=== PATIENT | female | born 1995 | race Caucasian/White ===

== ENCOUNTER 2023-02-10 10:54 | Outpatient (OUT) | payer BC, SELFPAY | END 2023-02-10 10:55 | disposition home or self-care (01) | LOC: PST 10:54 | PROVIDERS: Visit Provider Obstetrics & Gynecology | DX: Z01.818 Encounter for other preprocedural examination (principal); Z30.2 Encounter for sterilization ==

== ENCOUNTER 2023-02-13 10:30 | Day surgery (SDC) | payer BC, SELFPAY ==
[2023-02-10 11:11] VITALS: BP 137/81; PULSE 80; RESP 18; TEMP 36.4; O2SAT 98; BMI 47.1
[2023-02-13] VITALS (12 sets, daily range): BP systolic 97–123; BP diastolic 50–84; PULSE 85–107; RESP 12–22; TEMP 36.1; O2SAT 93–100; BMI 47.1
[2023-02-13 10:41] LABS: Basophils Absolute Auto 0.1 10^3/uL (0.0-0.1); Basophils Percent Auto 0.7 % (0.2-2.0); Eosinophils Absolute Auto 0.2 10^3/uL (0.0-0.7); Eosinophils Percent Auto 1.7 % (0.9-7.0); Hematocrit 39.8 % (36.0-48.0); Hemoglobin 12.3 g/dL (12.0-16.0); Immature Granulocytes Abs Auto 0.03 10^3/uL (0.00-0.03); Immature Granulocytes Pct Auto 0.3 % (0.0-0.5); Lymphocytes Absolute Auto 2.2 10^3/uL (1.2-3.8); Lymphocytes Percent Auto 24.5 % (20.5-60.0); Mean Corpuscular HGB Conc 30.9 g/dL (29.9-35.2); Mean Corpuscular Hemoglobin 24.8 pg (26.7-34.0); Mean Corpuscular Volume 80.2 fL (81.0-99.0); Mean Platelet Volume 10.6 fL (9.5-13.5); Monocytes Absolute Auto 0.6 10^3/uL (0.3-0.8); Monocytes Percent Auto 7.1 % (1.7-12.0); Neutrophils Absolute Auto 5.8 10^3/uL (1.4-6.5); Neutrophils Percent Auto 65.7 % (43.0-75.0); Platelet Count 364 10^3/uL (150-450); Red Blood Count 4.96 10^6/uL (4.20-5.40); Red Cell Distribution Width 16.6 % (11.0-15.0); White Blood Count 8.8 10^3/uL (4.0-11.0)
[2023-02-13] MEDS: LACTATED RINGER'S SOLUTION 1,000 ML 50 ML IV (10:57)
[2023-02-13 11:07] LABS: HCG Quantitative <1 mIU/mL
--- NOTE | 2023-02-13 13:27 | PM.ONB ---
Brief Operative Note Date of procedure: 02/13/23 Pre-op diagnosis: desires permanent sterilization Post-op diagnosis: same Procedure: robotic assisted laparoscopic bilateral salpingectomy. PROCEDURE: The patient was taken back to the Operating Room where she was given general anesthesia without difficulty. She was then prepped and draped in the normal sterile fashion after being placed in a dorsal lithotomy position. A wet sponge stick was placed into the patient's vagina. Attention was then turned to the patient's abdomen, where a scalpel was used to make a small infraumbilical incision. The S retractors were then used to dissect the underlying layers until the fascia could be seen. The fascia was then grasped with Whitney clamps and tented up. A knife was then used to make a small incision to the fascia. The muscle was identified, at that time two sutures of #0 Vicryl on a GI needle was then used and placed through the fascia. Theperitoneum was then identified and entered bluntly. The 10-4 Pancho was then placed into the patient's abdomen. This was confirmed with direct visualization of the bowel, using the laparoscope. The patient's abdomen was then insufflated using approximately 4 liters of CO2 gas. Survey of the patient's abdomen demonstrated ovaries were normal in appearance as well as both tubes and uterus. A second and third rt and lt lateral robotics ports which were 8 mm in size, was then placed after the skin incision was made under direct visualization The robotic arms were engaged. The patient's tube on the patient's right side was identified and tented up using a grasper, the vessel sealer apparatus was then used to come across the mesosalpingx from the fimbriated end to the insertion site at the uterus, the tube was then amputated and removed in its entirety. This was done on the contralateral side. The tubes were the removed from the patients abdomen. Excellent hemostasis was noted. The lateral ports were then moved under direct visualization with excellent hemostasis. All instruments were removed from the patient's abdomen. The fascia was closed using the #0 Vicryl on GI needle. The skin was closed using 4-0 Vicryl subcuticularly. All instruments were removed from the patient's vagina as well. The patient was taken out of the dorsal lithotomy position and placed in the supine position and taken to recovery in stable condition. Sponge, lap and needle counts were correct x2. Anesthesia: LEW Surgeon: Don Longo Film Editor Supervisor: Flores Solis Estimated blood loss (mL): 10 Pathology: other (bilateral tubes) Condition: stable Disposition: PACU
--- NOTE | 2023-02-13 14:00 | PC.NURSE ---
Dressings x3 to abdomen dry and intact; peripad dry
[2023-02-13] MEDS: MEPERIDINE HCL/PF 25 MG/ML VIAL IVP (14:02)
--- NOTE | 2023-02-13 14:09 | PC.NURSE ---
Dressings to abdomen dry and intact; peripad dry
--- NOTE | 2023-02-13 14:11 | PM.ONB ---
Brief Operative Note Date of procedure: 02/13/23 Pre-op diagnosis: desires permanent sterilization, multiparity Post-op diagnosis: same Procedure: NAME OF PROCEDURE: [robotic assisted bilateral laparoscopic salpingectomy, removal of copper iud ] PROCEDURE: The patient was taken back to the Operating Room where she was given general anesthesia without difficulty. She was then prepped and draped in the normal sterile fashion after being placed in a dorsal lithotomy position. A wet sponge stick was placed into the patient's vagina. Attention was then turned to the patient's abdomen, where a scalpel was used to make a small infraumbilical incision. The S retractors were then used to dissect the underlying layers until the fascia could be seen. The fascia was then grasped with Whitney clamps and tented up. A knife was then used to make a small incision to the fascia. The muscle was identified, at that time two sutures of #0 Vicryl on a GI needle was then used and placed through the fascia. the peritoneum was then identified and entered bluntly. The 10-4 Pancho was then placed into the patient's abdomen. This was confirmed with direct visualization of the bowel, using the laparoscope. The patient's abdomen was then insufflated using approximately 4 liters of CO2 gas. Survey of the patient's abdomen demonstrated ovaries were normal in appearance as well as both tubes and uterus. A second and third rt and lt lateral robotics ports which were 8 mm in size, was then placed after the skin incision was made under direct visualization The robotic arms were engaged. The patient's tube on the patient's right side was identified and tented up using a grasper, the vessel sealer apparatus was then used to come across the mesosalpingx from the fimbriated end to the insertion site at the uterus, the tube was then amputated and removed in its entirety. This was done on the contralateral side. The tubes were the removed from the patients abdomen. Excellent hemostasis was noted. The lateral ports were then moved under direct visualization with excellent hemostasis. All instruments were removed from the patient's abdomen. The fascia was closed using the #0 Vicryl on GI needle. The skin was closed using 4-0 Vicryl subcuticularly. All instruments were removed from the patient's vagina as well. The patient was taken out of the dorsal lithotomy position and placed in the supine position and taken to recovery in stable condition. Sponge, lap and needle counts were correct x2. please note prior to procedure copper iud was removed using ring forceps Anesthesia: LEW Surgeon: Don Longo Strap Buckler Machine: Flores Solis Estimated blood loss (mL): 5 Pathology: other (bilateral tubes) Condition: stable Disposition: PACU
--- NOTE | 2023-02-13 14:18 | PC.NURSE ---
Peripad dry; dressings x3 dry and intact to abdomen
--- NOTE | 2023-02-13 14:27 | PC.NURSE ---
Peripad dry and dressings x3 to abdomen dry
[2023-02-13] MEDS: LACTATED RINGER'S SOLUTION 1,000 ML 150 ML IV (14:33)
--- NOTE | 2023-02-13 14:47 | PC.NURSE ---
Peripad dry; dressings x3 dry and intact to abdomen; c/o nausea which subsided after alcohol pad held under nose; food and drink withheld for now
[2023-02-13] MEDS: HYDROCODONE/ACETAMINOPHEN 5-325 MG TABLET 1 TAB PO (15:09)
--- NOTE | 2023-02-13 15:12 | PC.NURSE ---
dRESSINGS X3 TO ABDOMEN DRY AND INTACT; PERIPAD DRY; NO FURTHER C/O NAUSEA
--- NOTE | 2023-02-13 15:13 | PC.NURSE ---
medicated for pain as ordered and per pt. request
--- NOTE | 2023-02-13 15:45 | PC.NURSE ---
Dressings x3 to abdomen dry and intact; peripad dry; up to bathroom and voided clear yellow urine without difficulty. When standing up after voiding became lightheaded and nauseated; back to cart with w/c
== END 2023-02-13 16:11 | disposition home or self-care (01) ==
PROVIDERS: Visit Provider Obstetrics & Gynecology
PROC: (CPT 58301; principal; 2023-02-13 11:55)
DX: Z30.432 Encounter for removal of intrauterine contraceptive device (principal); Z30.2 Encounter for sterilization; N70.01 Acute salpingitis; N70.11 Chronic salpingitis; N83.8 Other noninflammatory disorders of ovary, fallopian tube and broad ligament; E66.01 Morbid (severe) obesity due to excess calories; Z68.42 Body mass index [BMI] 45.0-49.9, adult; Z79.84 Long term (current) use of oral hypoglycemic drugs; Z79.899 Other long term (current) drug therapy; E28.2 Polycystic ovarian syndrome; F41.9 Anxiety disorder, unspecified
CPT/HCPCS: 58301; 58661; 36415; 84702; 85025; 88304; 88305; J2704

== ENCOUNTER 2023-04-01 21:31 | Outpatient (REF) | payer BC, SELFPAY ==
[2023-04-06 14:08] LABS: Age Gdln ACOG Testing Note (.); IGP, rfx Aptima HPV ASCU Note (.)
== END 2023-04-01 21:32 | disposition home or self-care (01) ==
LOC: LAB 21:31
PROVIDERS: Visit Provider Obstetrics & Gynecology
DX: Z12.4 Encounter for screening for malignant neoplasm of cervix (principal)
CPT/HCPCS: G0145

== ENCOUNTER 2023-08-12 09:29 | Outpatient (OUT) | payer BC, SELFPAY ==
[2023-08-12 09:55] LABS: Estimated Average Glucose 97 mg/dL
[2023-08-12 10:19] LABS: Basophils Percent Auto 0.6 % (0.2-2.0); Eosinophils Absolute Auto 0.1 10^3/uL (0.0-0.7); Eosinophils Percent Auto 2.2 % (0.9-7.0); Hematocrit 40.7 % (36.0-48.0); Hemoglobin 12.9 g/dL (12.0-16.0); Immature Granulocytes Abs Auto 0.01 10^3/uL (0.00-0.03); Immature Granulocytes Pct Auto 0.2 % (0.0-0.5); Lymphocytes Absolute Auto 1.9 10^3/uL (1.2-3.8); Lymphocytes Percent Auto 29.4 % (20.5-60.0); Mean Corpuscular HGB Conc 31.7 g/dL (29.9-35.2); Mean Corpuscular Hemoglobin 26.7 pg (26.7-34.0); Mean Corpuscular Volume 84.1 fL (81.0-99.0); Mean Platelet Volume 11.4 fL (9.5-13.5); Monocytes Absolute Auto 0.6 10^3/uL (0.3-0.8); Monocytes Percent Auto 8.9 % (1.7-12.0); Neutrophils Absolute Auto 3.8 10^3/uL (1.4-6.5); Neutrophils Percent Auto 58.7 % (43.0-75.0); Platelet Count 273 10^3/uL (150-450); Red Blood Count 4.84 10^6/uL (4.20-5.40); Red Cell Distribution Width 15.5 % (11.0-15.0); White Blood Count 6.5 10^3/uL (4.0-11.0)
[2023-08-12 13:44] LABS: Alanine Aminotransferase 32 U/L (14-59); Albumin Globulin Ratio 0.9; Albumin Level 3.8 g/dL (3.4-5.0); Alkaline Phosphatase 70 U/L (46-116); Amylase 51 U/L (25-115); Anion Gap 18.7; Aspartate Amino Transferase 17 U/L (15-37); BUN Creatinine Ratio 15.9; Bilirubin Total 0.5 mg/dL (0.2-1.0); Calcium 9.2 mg/dL (8.5-10.1); Carbon Dioxide 23.6 mmol/L (21.0-32.0); Chloride 104 mmol/L (98-107); Chol HDL Ratio 4.3; Cholesterol 229 mg/dL (<=200); Estimated GFR (African America >60 (>=60); Estimated GFR (Non-African Ame >60 (>=60); Globulin 4.2 g/dL; Glucose 81 mg/dL (74-106); HDL Cholesterol 53 mg/dL (40-60); Potassium 4.3 mmol/L (3.5-5.1); Sodium 142 mmol/L (136-145); Thyroid Stimulating Hormone 0.939 uIU/mL (0.358-3.740); Triglycerides 86 mg/dL (<=150); VLDL CHOLESTEROL 17.2 mg/dL
== END 2023-08-12 09:30 | disposition home or self-care (01) ==
LOC: LAB 09:30
PROVIDERS: Visit Provider Physician Assistant
DX: Z00.01 Encounter for general adult medical examination with abnormal findings (principal)
CPT/HCPCS: 36415; 80053; 80061; 82150; 83036; 83690; 84443; 85025

== ENCOUNTER 2024-04-06 19:34 | Outpatient (REF) | payer BC, SELFPAY ==
--- OUTSIDE RECORDS SUMMARY | 2024-04-06 19:38 | XMS_ITS | CCD ---
Author Organization [facility] Care Team Providers Care Wallcovering Hanger Name Role Phone Required, No Pcp Unavailable Unavailable Jade Rehman Unavailable GUNJAN, DR MATTHEW Admitting Unavailable GUNJAN, DR MATTHEW Attending Unavailable GUNJAN, DR MATTHEW Primary Care Unavailable GUNJAN, DR MATTHEW Consulting Unavailable GUNJAN, DR MATTHEW Admitting Unavailable GUNJAN, DR MATTHEW Attending Unavailable GUNJAN, DR MATTHEW Primary Care Unavailable GUNJAN, DR MATTHEW Consulting Unavailable KOURTNEY NANCE Attending Unavailable TIFF HOLLINS Primary Care Unavailable SHIMA PENDLETON Attending Unavailable SHIMA PENDLETON Attending Unavailable Valentin GALLEGOS Attending Unavailable Medications Current Medications Medication Drug Class(es) Dates Sig (Normalized) Sig (Original) amoxicillin 875 mg / clavulanate 125 mg oral tablet (1 source) Penicillin-class Antibacterial Start: 10-23-2021 End: 11-01-2021 take 1 tablet by mouth twice daily at mealtime amoxicillin-clavula odilia 875 mg-125 mg oral tablet ; 1 tab(s) orally 2 times a day x 10 days Quantity: 20 Refills: 0 Ordered: 23-Oct-2021 Jade Rehman Start: 23-Oct-2021 End: 01-Nov-2021 Generic Substitution Allowed Comments: Finish all this medication unless otherwise directed by prescriber.Take with food or milk. Comment on above: Finish all this medi cation unless otherwise directed by prescriber.Take with food or milk. 24 hr buPROPion hydrochloride 150 mg extended release oral tablet (1 source) Aminoketone take 1 tablet by mouth every twenty-four hours Wellbutrin XL 150 mg/24 hours oral tablet, extended release ; 1 tab(s) orally every 24 hours Quantity: 0 Refills: 0 Ordered: 23-Oct-2021 Fernando Proctor Generic Substitution Allowed metFORMIN hydrochloride 500 mg oral tablet (1 source) Biguanide take 1 tablet by mouth twice daily metFORMIN 500 mg oral tablet ; 1 tab(s) orally 2 times a day Quantity: 0 Refills: 0 Ordered: 23-Oct-2021 Fernando Proctor Generic Substitution Allowed spironolactone 50 mg oral tablet (1 source) Aldosterone Antagonist take 1 tablet by mouth once daily spironolactone 50 mg oral tablet ; 1 tab(s) orally once a day Quantity: 0 Refills: 0 Ordered: 23-Oct-2021 Fernando Proctor Generic Substitution Allowed Problems Problem Classification Problem Date Documented Date Episodic/Chronic Fracture of lower limb (2 sources) Unspecified fracture of left toe(s), initial encounter for closed fracture; Translations: [Unspecified fracture of left toe(s), initial encounter for closed fracture] Onset: 10-22-2022 Episodic Immunizations and screening for infectious disease (1 source) Encounter for screening for human papillomavirus (HPV); Translations: [ENC SCREENING HUMAN PAPILLOMAVIRUS] Onset: 03-26-2022 Episodic Other endocrine disorders (4 sources) Polycystic ovarian syndrome; Translations: [POLYCYSTIC OVARIAN SYNDROME] Onset: 05-01-2022 Chronic Other screening for suspected conditions (not mental disorders or infectious disease) (4 sources) Encounter for screening for malignant neoplasm of cervix; Translations: [ENC SCREENING MALIG NEOPLASM CERV] Onset: 03-25-2022 Episodic Otitis media and related conditions (1 source) Acute otitis media; Translations: [Unspecified otitis media] 10-23-2021 Episodic Unclassified (2 sources) EAR PAIN 10-23-2021 Comment on above: EAR PAIN Unclassified (1 source) AOM (acute otitis media) 10-23-2021 Results Test Name Value Interpretation Reference Range Facility XR FOOT LEFT 3+ VIEWS (STAND SHELBY)on 10-22-2022 XR FOOT LEFT 3+ VIEWS (STANDARD) EXAMINATION: XR FOOT LEFT 3+ VIEWS (STANDARD) HISTORY: F, 27 y/o , left 4th toe pain and swelling COMPARISON: None TECHNIQUE: Three views of the left foot are performed. FINDINGS: There is a subtle lucency within the proximal 4th phalanx, suggesting a nondisplaced fracture.The remaining bony structures are unremarkable. IMPRESSION: Suspected nondisplaced oblique fracture of the proximal 4th phalanx. Workstation ID: [id number] Dictated by: YAMILKA FINLEY on ThuOct 22, 2022 10:00:45 PM EDT Transcribed by: YAMILKA FINLEY on ThuOct 22, 2022 10:00:45 PM EDT Finalized by: YAMILKA FINLEY on ThuOct 22, 2022 10:00:45 PM EDT [facility] Comment on above: Order Comment: Injur y/Trauma or Illness?:Injury/Trauma How long have you had these symptoms (acute/chronic)?:Acute Reason for exam?:hit left foot on couch yesterday, pain and bruising to lt 4th toe History of cancer?:no Surgeries, chemotherapy, or radiation?:no Type of Exam?:Initial Mechanism of injury?:hit left foot on couch DHEA SERUMon 05-05-2022 Dehydroepiandrosterone (DHEA) 454 ng/dL Normal 31-701 [facility] Comment on above: Result Comment: Age 1 - 5 years 0 - 67 6 - 7 years 0 - 110 8 - 10 years 0 - 185 11 - 12 years 0 - 201 13 - 14 years 0 - 318 15 - 16 years 39 - 481 17 - 19 years 40 - 491 >19 years 31 - 701 Performed By: #### D MELBAA. #### [facility] [address] [address] [address] Mariama Matamoros DHEA-SULFATEon 05-02-2022 DHEA-Sulfate 316.0 ug/dL Normal 84.8-378.0 [facility] Comment on above: Performed By: #### D MEETUL #### [facility] [address] [address] [address] Mariama Matamoros FSHon 05-02-2022 FSH 3.9 mIU/mL Normal [facility] Comment on above: Result Comment: Adul t Female: Follicular phase 3.5 - 12.5 Ovulation phase 4.7 - 21.5 Luteal phase 1.7 - 7.7 Postmenopausal 25.8 - 134.8 Performed By: #### L [facility] #### [facility] [address] [address] [address] Mariama Matamoros LUTEINIZING HORMONE (LH)on LH 5.6 mIU/mL Normal [facility] Comment on above: Result Comment: Adul t Female: Follicular phase 2.4 - 12.6 Ovulation phase 14.0 - 95.6 Luteal phase 1.0 - 11.4 Postmenopausal 7.7 - 58.5 Performed By: #### L BCL #### [facility] [address] [place] [address] Dr. Mariama Matamoros CBC AUTO DIFFon 05-01-2022 BASO # 0.1 103/ul Normal 0.0-0.1 [facility] Comment on above: Performed By: #### C BC #### [facility] [address] [place] [address] Dr. Mariama Matamoros Basophils/100 WBC (Bld) 0.7 % Normal 0.2-2.0 [facility] Comment on above: Performed By: #### C BC #### [facility] [address] [place] [address] Dr. Mariama Matamoros EO # 0.2 103/ul Normal 0.0-0.7 [facility] Comment on above: Performed By: #### C BC #### [facility] [address] [place] [address] Dr. Mariama Matamoros Eosinophils/100 WBC (Bld) 2.3 % Normal 0.9-7.0 [facility] Comment on above: Performed By: #### C BC #### [facility] [address] [place] [address] Dr. Mariama Matamoros Erythrocyte distribution width (RBC) [Ratio] 16.0 % Critically high 11.0-15.0 [facility] Comment on above: Performed By: #### C BC #### [facility] [address] [place] [address] Dr. Mariama Matamoros Hematocrit (Bld) [Volume fraction] 41.8 % Normal 36.0-48.0 [facility] Comment on above: Performed By: #### C BC #### [facility] [address] [place] [address] Dr. Mariama Matamoros Hemoglobin (Bld) [Mass/Vol] 13.0 g/dL Normal 12.0-16.0 [facility] Comment on above: Performed By: #### C BC #### [facility] [address] [address] [address] Mariama Matamoros IG # 0.04 10e3/ul Critically high 0.00-0.03 [facility] Comment on above: Performed By: #### C BC #### [facility] [address] [address] [address] Mariama Matamoros IG % 0.4 % Normal 0.0-0.5 [facility] Comment on above: Performed By: #### C BC #### [facility] [address] [place] [address] Dr. Mariama Matamoros LYMPH # 2.7 103/ul Normal 1.2-3.8 [facility] Comment on above: Performed By: #### C BC #### [facility] [address] [place] [address] Dr. Mariama Matamoros Lymphocytes/100 WBC (Bld) 28.2 % Normal 20.5-60.0 [facility] Comment on above: Performed By: #### C BC #### [facility] [address] [place] [address] Dr. Mariama Matamoros MANUAL DIFF REQ NO Normal [facility] Comment on above: Performed By: #### C BC #### [facility] [address] [place] [address] Dr. Mariama Matamoros MCH (RBC) [Entitic mass] 25.2 pg Critically low 26.7-34 .0 [facility] Comment on above: Performed By: #### C BC #### [facility] [address] [place] [address] Dr. Mariama Matamoros MCHC (RBC) [Mass/Vol] 31.1 g/dL Normal 29.9-35.2 [facility] Comment on above: Performed By: #### C BC #### [facility] [address] [place] [address] Dr. Mariama Matamoros MCV (RBC) [Entitic vol] 81.0 fL Normal 81.0-99.0 [facility] Comment on above: Performed By: #### C BC #### [facility] [address] [place] [address] Dr. Mariama Matamoros MONO # 0.6 103/ul Normal 0.3-0.8 [facility] Comment on above: Performed By: #### C BC #### [facility] [address] [place] [address] Dr. Mariama Matamoros Monocytes/100 WBC (Bld) 6.3 % Normal 1.7-12.0 [facility] Comment on above: Performed By: #### C BC #### [facility] [address] [place] [address] Dr. Mariama Matamoros NEUT # 5.9 103/ul Normal 1.4-6.5 [facility] Comment on above: Performed By: #### C BC #### [facility] [address] [place] [address] Dr. Mariama Matamoros Neutrophils/100 WBC (Bld) 62.1 % Normal 43.0-75.0 [facility] Comment on above: Performed By: #### C BC #### [facility] [address] [place] [address] Dr. Mariama Matamoros Platelet mean volume (Bld) [Entitic vol] 11.1 fL Normal 9.5-13.5 [facility] Comment on above: Performed By: #### C BC #### [facility] [address] [place] [address] Dr. Mariama Matamoros PLT 287 103/ul Normal 150-450 [facility] Comment on above: Performed By: #### C BC #### [facility] [address] [place] [address] Dr. Mariama Matamoros RBC 5.16 106/ul Normal 4.20-5.40 [facility] Comment on above: Performed By: #### C BC #### [facility] [address] [place] [address] Dr. Mariama Matamoros WBC 9.5 103/ul Normal 4.0-11.0 [facility] Comment on above: Performed By: #### C BC #### [facility] [address] [place] [address] Dr. Mariama Matamoros FREE T4on 05-01-2022 Free T4 [Mass/Vol] 1.02 ng/dL Normal 0.76-1.46 [facility] Comment on above: Performed By: #### F T4 #### [facility] [address] [place] [address] Dr. Mariama Matamoros GLYCOHEMOGLOBIN A1Con 2021 ADA RECOMMENDATION SEE BELOW Normal [facility] Comment on above: Result Comment: ADA RECOMMENDED LIMIT 4.0 - 6.0 ADA THERAPEUTIC TARGET < 7.0 ACTION SUGGESTED > 7.0 Performed By: #### A 1C #### [facility] [address] [place] [address] Dr. Mariama Matamoros Glucose [Mass/Vol] 111 mg/dL Normal [facility] Comment on above: Performed By: #### A 1C #### [facility] [address] [place] [address] Dr. Mariama Matamoros HbA1c (Bld) [Mass fraction] 5.5 % Normal 4.5-6.2 [facility] Comment on above: Performed By: #### A 1C #### [facility] [address] [place] [address] Dr. Mariama Matamoros TSHon 05-01-2022 TSH 1.559 uIU/mL Normal 0.358-3.740 [facility] Comment on above: Performed By: #### T SH #### [facility] [address] [place] [address] Dr. Mariama Matamoros PAP ACOG PANEL 2: 21 to 29on 04-02-2022 . . Normal [facility] Comment on above: Performed By: #### 4 [id number] #### [facility] [address] [place] [address] Dr. Mariama Matamoros Age Gdln ACOG Testing - [facility] Comment on above: Performed By: #### 4 [id number] #### [facility] [address] [place] [address] Dr. Mariama Matamoros DIAGNOSIS: Comment [facility] Comment on above: Result Comment: NEGA TIVE FOR INTRAEPITHELIAL LESION OR MALIGNANCY. Performed By: #### [id number] #### [facility] [address] [place] [address] Dr. Mariama Matamoros Methodology: Comment Normal [facility] Comment on above: Result Comment: This liquid based ThinPrep(R) pap test was screened with the use of an image guided system. Performed By: #### 4 [id number] #### [facility] [address] [place] [address] Dr. Mariama Matamoros Note: Comment Normal [facility] Comment on above: Result Comment: The Pap smear is a screening test designed to aid in the detection of premalignant and malignant conditions of the uterine cervix. It is not a diagnostic procedure and should not be used as the sole means of detecting cervical cancer. Both false-positive and false-negative reports do occur. . Performed By: #### 4 [id number] #### [facility] [address] [place] [address] Dr. Mariama Matamoros Performed by: Comment Normal [facility] Comment on above: Result Comment: Kamilah Roque Shredder/Granulator Operator (ASCP) Performed By: #### [id number] #### [facility] [address] [place] [address] Dr. Mariama Matamoros Reflex Criteria: Comment Normal [facility] Comment on above: Result Comment: The HPV DNA reflex criteria were not met with this specimen result therefore, no HPV testing was performed. . Performed By: #### 4 [id number] #### [facility] [address] [place] [address] Dr. Mariama Matamoros Specimen adequacy: Comment Normal [facility] Comment on above: Result Comment: Sati sfactory for evaluation. No endocervical component is identified. Performed By: #### 4 [id number] #### [facility] [address] [place] [address] Dr. 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 She states she was treated with Z-Cesar and albuterol inhaler for bronchitis type viral illness about 2 weeks ago at an urgent care in [place]. She denies any cough congestion that is worsening. She states the cough is improving. Denies any chest pain or shortness of breath. No fevers or chills. Denies any ear pain but notes a feeling of underwater and pressure behind the ears worse on the right than the left. Patient denies any dizziness lightheadedness headaches visual changes or slurred speech. Review of Systems All systems negative except as noted in HPI or elsewhere in the chart Constitutional: no fever, chills, weakness, dizziness Eyes: no redness, discharge, vision change, pain ENT: no sore throat, nosebleeds, rhinorrhea, +hearing loss, ear pain, +ear discharge Cardiovascular: no chest pain, leg edema, palpitations Respiratory: no shortness of breath, cough, dyspnea on exertion, pleurisy, hemoptysis GI: no nausea, diarrhea, pain, vomiting, constipation, BRBPR, melena, heartburn : no dysuria, discharge, frequency, flank pain, hematuria, bleeding Musculoskeletal: no myalgia, neck/back pain, redness, arthralgia, inflammation Skin: no rash, bruising, contusions, swelling, lacerations, abrasions Neurological: no headache, numbness, change in function, weakness, AMS, paresthesias, speech change Psychiatric: no AMS, agitation, suicidal, confusion, depression, anxiety Metabolic: no fatigue, polyuria, hair change, dry skin, weakness, polydipsia, temperature intolerance Hematologic: no bleeding, nodes, bruising, petechiae Allergic: no rhinorrhea, sneezing, atopic dermatitis, frequent URIs PMFSH Nursing notes reviewed and confirmed by me. Past Medical History: PCOS , obese, depression Past Surgical History: LMP: G P Tetanus: UTD Family History: no DM, HTN, CAD, CVA, Cancer Social History: no smoking, alcohol use, substance abuse, lives alone, marital status Allergies and Medications: See nurses notes. Physical Exam Constitutional: Vital signs per nursing notes. Well developed, well nourished. No acute distress. Young overweight pleasant female evaluated in urgent care #1 in no distress Psychiatric: alert and oriented to person, place, and time; no abnormalities of mood or affect; memory intact Eyes: PERRL; conjunctivae and lids normal; EOMI ENT: otoscopic exam of external canal and TMs significant purulent air-filled opacity with bulging noted to the right TM, injection and retraction noted to the left TM, no notable externa drainage or evidence of canal narrowing or edema.; nasal mucosa, turbinates, and septum normal; mouth, tongue, and pharynx normal; pharynx without edema, exudate, or injection, moist mucous membranes Neck: neck supple, no meningismus; trachea midline without deviation; no lymphadenopathy; no thyromegaly; carotid pulses even bilaterally Chest: no masses or tenderness, no discharge Respiratory: normal respiratory effort and excursion; no rales, rhonchi, or wheezes; equal air entry Cardiovascular: regular rate and rhythm; no murmurs, rubs or gallops; symmetric pulses; no edema; normal capillary refill; distal pulses present Neurological: normal speech; CN II-XII grossly intact; Musculoskeletal: normal gait and station; normal digits and nails; Skin: normal to inspection; normal to palpation; no rash GCS: 15 HISTORY OF PRESENTING ILLNESS GREGORY is a 26 year old Female and was seen by me at 23-Oct-2021 15:59. Triage Information: Most recent Vital Sign Value Date PAST MEDICAL HISTORY ALLERGIES/INTOLERAN EVY: No Known Allergies HEALTH HISTORY: No documented data. OUTPATIENT MEDICATIONS: Home Medications Review Status for Reconciliation: Complete Med Status: Patient Currently Takes Medications Drug Name: Wellbutrin XL 150 mg/24 hours oral tablet, extended release Instructions: 1 tab(s) orally every 24 hours Drug Name: metFORMIN 500 mg oral tablet Instructions: 1 tab(s) orally 2 times a day Drug Name: spironolactone 50 mg oral tablet Instructions: 1 tab(s) orally once a day SIGNIFICANT EVENTS: Other Description:NON SMOKER Additional Notes:09/2021 Past Medical History Description:PCOS Additional Notes:09/2021 Past Surgical History Description:NO SURGICAL HISTORY THIS YEAR Additional Notes:09/2021 CRITICAL CARE VITAL SIGNS: T PRBP SpO2O2(LPM) %FiO2 Method 23-Oct-2021 15:50:[id number] 97 MDM MDM/ED COURSE: Patient 2 weeks post viral syndrome states she is improving. Lungs are clear bilaterally. Patient well-appearing with normal vital signs. Patient does have significant bulging and purulence with opacification noted to the right TM with retra (more content not included)... Normal [facility] Vital Signs Date Time Vital Sign Value Performing Clinician Facility 10-23-2021 17:50-0400 Body height 167.6 cm No Pcp Required [facility] 10-23-2021 17:50-0400 Body temperature 96.08 [degF] No Pcp Required [facility] 10-23-2021 17:50-0400 Diastolic blood pressure 71 mm[Hg] No Pcp Required [facility] 10-23-2021 17:50-0400 Heart rate 78 /min No Pcp Required [facility] 10-23-2021 17:50-0400 Respiratory rate 16 /min No Pcp Required [facility] 10-23-2021 17:50-0400 SaO2% (BldA) [Mass fraction] 97 % No Pcp Required [facility] 10-23-2021 17:50-0400 Systolic blood pressure 105 mm[Hg] No Pcp Required [facility] Encounters Encounter Date Encounter Type Care Provider Facility Start: 03-21-2024 End: 03-21-2024 ambulatory Valentin ROSY Facility:[facility] Start: 12-15-2023 End: 12-15-2023 ambulatory SHIMA PENDLETON Not Available Start: 08-11-2023 End: 08-11-2023 ambulatory SHIMA PENDLETON Not Available Start: 10-22-2022 End: 10-23-2022 Emergency department patient visit KOURTNEY NANCE [facility] Start: 05-01-2022 End: 05-02-[address] TIFF HOLLINS Facility:[facility] Start: 03-25-2022 End: 03-25-[address] TIFF HOLLINS Facility:[facility] Start: 10-23-2021 End: 10-23-2021 Emergency department patient visit J[facility] Payers Date Payer Category Payer Unknown [id number] 1996 Unknown [id number] 1996 Unknown [id number] 1996 Unknown [id number] 1996 Unknown [id number] 1996 Unknown [id number] 1996 Unknown [id number] 1959 Unknown [id number] Unknown [employer] [place] Self-pay Social History Date Type Detail Facility [facility] Tobacco smoking consumption unknown [facility] Summary Purpose Family History No Family History Records FoundNo Family History Records FoundNo Family History Records FoundNo Family History Records FoundNo Family History Records Found Advance Directives No Advanced Directives Records FoundNo Advanced Directives Records FoundNo Advanced Directives Records FoundNo Advanced Directives Records FoundNo Advanced Directives Records Found Additional Source Comments <item> Privacy Markings (unrecogniz ed section and content) Section Author: Paige Walton PROHIBITION ON REDISCLOSURE OF CONFIDENTIAL INFORMATION This notice accompanies a disclosure of information concerning a client made to you with the consent of such client. INFORMATION SOURCE (unrecogn ized section and content) DATE CREATED AUTHOR 10/25/2021 [facility] DATE CREATED AUTHOR AUTHOR'S ORGANIZ ATION 05/05/2022 [facility] DATE CREATED AUTHOR AUTHOR'S ORGANIZ ATION 10/30/2022 [facility] DATE CREATED AUTHOR AUTHOR'S ORGANIZ ATION 12/17/2023 [facility] EPIC DATE CREATED AUTHOR AUTHOR'S ORGANIZ ATION 03/22/2024 [facility] FOR RECORDS PERTAINING TO PATIENTS WHO ARE OR HAVE BEEN ENROLLED IN A CHEMICAL DEPENDENCY/SUBSTANCEABUSE PROGRAM, SOME INFORMATION MAY BE OMITTED. This clinical summary was aggregated from multiple sources. Caution should be exercised in using it in the provision of clinical care. This summary normalizes information from multiple sources, and as a consequence, information in this document may materially change the coding, format and clinical context of patient data. In addition, data may be omitted in some cases. CLINICAL DECISIONS SHOULD BE BASED ON THE PRIMARY CLINICAL RECORDS. [facility] [employer] [facility]. provides no warranty or guarantee of the accuracy or completeness of information in this document.
== END 2024-04-06 19:35 | disposition home or self-care (01) ==
LOC: LAB 19:34
PROVIDERS: Visit Provider Obstetrics & Gynecology
DX: Z01.419 Encounter for gynecological examination (general) (routine) without abnormal findings (principal)
CPT/HCPCS: 88175

== ENCOUNTER 2024-05-11 10:25 | Outpatient (REF) | payer BC, SELFPAY ==
--- OUTSIDE RECORDS SUMMARY | 2024-05-19 10:32 | XMS_ITS | CCD ---
Author Organization [facility] Care Team Providers Care Pump Installer Name Role Phone Required, No Pcp Unavailable Unavailable Jade Rehman Unavailable QING, DR MATTHEW Admitting Unavailable QING, DR MATTHEW Attending Unavailable QING, DR MATTHEW Primary Care Unavailable QING, DR MATTHEW Consulting Unavailable QING, DR MATTHEW Admitting Unavailable QING, DR MATTHEW Attending Unavailable QING, DR MATTHEW Primary Care Unavailable QING, DR MATTHEW Consulting Unavailable KOURTNEY NANCE Attending Unavailable TIFF LONGO Primary Care Unavailable Valentin GALLEGOS Attending Unavailable Alen Ervin MD Primary Care Provider SHIMA PENDLETON Attending Unavailable SHIMA PENDLETON Attending Unavailable TIFF LONGO Attending Unavailable TIFF LONGO Attending Unavailable Medications Current Medications Medication Drug Class(es) Dates Sig (Normalized) Sig (Original) amoxicillin 875 mg / clavulanate 125 mg oral tablet (1 source) Penicillin-class Antibacterial Start: 10-23-2021 End: 11-01-2021 take 1 tablet by mouth twice daily at mealtime amoxicillin-clavu lanate 875 mg-125 mg oral tablet ; 1 [...] hydrochloride 150 mg extended release oral tablet (2 sources) Aminoketone Start: 04-06-2024 End: 04-06-2025 take 1 tablet by mouth once daily buPROPion XL (Wellbutrin XL) 150 MG 24 hr tablet Indications: Major depressive disorder, remission status unspecified, unspecified whether recurrent (CMS/HCC) Take 1 tablet (150 mg) by mouth Daily Do not crush, chew, or split. 360 tablet 04/06/2024 04/06/2025 Active take 1 tablet by garcia th every twenty-four hours Wellbutrin XL 150 mg/24 hours oral table t, extended release ; 1 tab(s) orally every 24 hours Quantity: 0 Refills: 0 Ordered: 23-Oct-2021 Fernando Proctor Generic Substitution Allowed clindamycin 10 mg/ml topical lotion (1 source) Lincosamide Antibacterial Start: 04-06-2024 End: 04-06-2025 clindamycin (Cleocin-T) 1 % lotion Indications: Acne, unspecified acne type Apply topically 2 (two) times a day 60 mL 04/06/2024 04/06/2025 Active 24 hr metFORMIN hydrochloride 500 mg extended release oral tablet (2 sources) Biguanide Start: 04-06-2024 End: 04-06-2025 take 2 tablets by mouth once daily metFORMIN XR (Glucophage-XR) 500 MG 24 hr tablet Indications: Insulin resistance Take 2 tablets (1,000 mg) by mouth Daily Do not crush, chew, or split. 60 tablet 04/06/2024 04/06/2025 Active take 1 tablet by mouth twice vania ly metFORMIN 500 mg oral tablet ; 1 tab(s) orally 2 times a day Quantity: 0 Refills: 0 Ordered: 23-Oct-2021 Fernando Proctor Generic Substitution Allowed spironolactone 50 mg oral tablet (2 sources) Aldosterone Antagonist Start: 04-06-2024 End: 04-06-2025 take 1 tablet by mouth once daily spironolactone (Aldactone) 50 MG tablet Indications: Blood pressure instability Take 1 tablet (50 mg) by mouth Daily 360 tablet 04/06/2024 04/06/2025 Active take 1 tablet by mouth once maria y spironolactone 50 mg oral tablet ; 1 tab(s) orally once a day Quantity: 0 Refills: 0 Ordered: 23-Oct-2021 Fernando Proctor Generic Substitution Allowed Tirzepatide (Mounjaro) 2.5 MG/0.5ML solution auto-injector (1 source) Start: 05-09-2024 End: 06-08-2024 inject 0.5 mL by subcutaneous injection every week Tirzepatide (Mounjaro) 2.5 MG/0.5ML solution auto-injector Indications: Weight gain INJECT 0.5 ML UNDER THE SKIN 1 (ONE) TIME PER WEEK 0.5 mL 2 05/09/2024 06/08/2024 Active Tirzepatide (Mounjaro) 5 MG/0.5ML solution auto-injector (1 source) Start: 05-11-2024 End: 06-10-2024 inject 0.5 mL by subcutaneous injection every week Tirzepatide (Mounjaro) 5 MG/0.5ML solution auto-injector Indications: Weight gain Inject 0.5 mL under the skin 1 (one) time per week 2 mL 05/11/2024 06/10/2024 Active Completed/Discontinued Medications Medication Drug Class(es) Dates Sig (Normalized) Sig (Original) minocycline 50 mg oral tablet (1 source) Tetracycline-cla ss Drug Start: 04-06-2024 End: 05-11-2024 take 1 tablet by mouth in the morning minocycline (Dynacin) 50 MG tablet Indications: Acne, unspecified acne type Take 1 tablet (50 mg) by mouth in the morning and 1 tablet (50 mg) before bedtime. 60 tablet 1 04/06/2024 05/11/2024 Discontinued 1 mg dose 1.5 ml semaglutide 1.34 mg/ml pen injector (1 source) Start: 01-13-2024 End: 05-11-2024 inject 1 mg by subcutaneous injection every week semaglutide (Ozempic, 1 MG/DOSE,) 2 MG/1.5ML solution pen-injector Indications: Insulin resistance Inject 1 mg under the skin 1 (one) time per week for 28 days 3 mL 01/13/2024 05/11/2024 Discontinued Semaglutide, 2 MG/DOSE, (Ozempic, 2 MG/DOSE,) 8 MG/3ML solution pen-injector (1 source) Start: 02-24-2024 End: 05-11-2024 Semaglutide, 2 MG/DOSE, (Ozempic, 2 MG/DOSE,) 8 MG/3ML solution pen-injector Indications: Insulin resistance Inject 8 mg under the skin 1 (one) time per week for 28 days 3 mL 02/24/2024 05/11/2024 Discontinued Problems Active Problems Problem Classification Problem Date Documented Date Episodic/Chronic Cancer of cervix (1 source) Cervical intraepithelial neoplasia grade 1; Translations: [Low grade squamous intraepithelial lesion on cytologic smear of cervix (LGSIL)] 05-11-2024 Episodic Fracture of lower limb (2 sources) Unspecified [...] [POLYCYSTIC OVARIAN SYNDROME] Onset: 05-01-2022 Chronic Other nutritional; endocrine; and metabolic disorders (1 source) Weight increased; Translations: [Abnormal weight gain] 05-11-2024 Episodic Other screening for suspected conditions (not mental [...] (1 source) AOM (acute otitis media) 10-23-2021 Past or Other Problems Problem Classification Problem Date Documented Da te Episodic/Chronic Administrative/social admission (1 source) Patient encounter status; Translations: [Persons encountering health services in other specified circumstances] Onset: 08-12-2023 08-12-2023 Episodic Results Test Name Value Interpretation Reference Range Facility HCG ( test) Ql (U)o n 05-11-2024 Interpretation and review of laboratory results Normal [facility] Preg Test, Ur Negative [facility] XR FOOT LEFT 3+ VIEWS (STAND SHELBY)on [...] on ThuOct 22, 2022 10:00:[address] [facility] Comment on above: Order Comment: Injur y/Trauma or Illness?:Injury/Trauma How long have you had these symptoms (acute/chronic)?:Acute Reason for exam?:hit left foot on couch yesterday, pain and bruising to lt 4th toe History of cancer?:no Surgeries, chemotherapy, or radiation?:no Type of Exam?:Initial Mechanism of injury?:hit left foot on couch DHEA SERUMon 05-05-2022 Dehydroepiandrosterone (DHEA) 454 ng/dL Normal 31-701 [facility] Comment on above: Result Comment: Age [...] years 31 - 89 Performed By: #### Sergio ONOFRE. #### [facility] [address] [place], [place] [address] Dr. Mariama Matamoros DHEA-SULFATEon 05-02-2022 DHEA-Sulfate 316.0 ug/dL Normal 84.8-378.0 [facility] Comment on above: Performed By: #### Sergio SINCLAIR #### [facility] [address] [place], [place] [address] Dr. Mariama Matamoros FSHon 05-02-2022 FSH 3.9 mIU/mL Normal [facility] Comment on above: Result Comment: Adul t Female: Follicular phase 3.5 - 12.5 Ovulation phase 4.7 - 21.5 Luteal phase 1.7 - 7.7 Postmenopausal 25.8 - 134.8 Performed By: #### L BCFS #### [facility] [address] [place] [address] Dr. Mariama Matamoros LUTEINIZING HORMONE (LH)on LH 5.6 mIU/mL Normal [facility] Comment on above: Result Comment: Adul t Female: Follicular phase 2.4 - 12.6 Ovulation phase 14.0 - 95.6 Luteal phase 1.0 - 11.4 Postmenopausal 7.7 - 58.5 Performed By: #### L BCL #### [facility] [address] [place] [address] Dr. Mariama Matamoros CBC AUTO DIFFon 05-01-2022 BASO # 0.1 103/ul Normal 0.0-0.1 [facility] Comment on above: Performed By: #### C BC #### [facility] [address] [place] [address] Dr. Mariama Matamoros Basophils/100 WBC (Bld) 0.7 % Normal 0.2-2.0 [facility] Comment on above: Performed By: #### C BC #### [facility] [address] [place] [address] Dr. Mariama Matamoros EO # 0.2 103/ul Normal 0.0-0.7 [facility] Comment on above: Performed By: #### C BC #### [facility] [address] [place] [address] Dr. Mariama Matamoros Eosinophils/100 WBC (Bld) 2.3 % Normal 0.9-7.0 [facility] Comment on above: Performed By: #### C BC #### [facility] [address] [place] [address] Dr. Mariama Matamoros Erythrocyte distribution width (RBC) [Ratio] 16.0 % Critically high 11.0-15.0 [facility] Comment on above: Performed By: #### C BC #### [facility] [address] [place] [address] Dr. Mariama Matamoros Hematocrit (Bld) [Volume fraction] 41.8 % Normal 36.0-48.0 [facility] Comment on above: Performed By: #### C BC #### [facility] [address] [place] [address] Dr. Mariama Matamoros Hemoglobin (Bld) [Mass/Vol] 13.0 g/dL Normal 12.0-16.0 [facility] Comment on above: Performed By: #### C BC #### [facility] [address] [place] [address] Dr. Mariama Matamoros IG # 0.04 10e3/ul Critically high 0.00-0.03 [facility] Comment on above: Performed By: #### C BC #### [facility] [address] [place] [address] Dr. Mariama Matamoros IG % 0.4 % Normal 0.0-0.5 [facility] Comment on above: Performed By: #### C BC #### [facility] [address] [place] [address] Dr. Mariama Matamoros LYMPH # 2.7 103/ul Normal 1.2-3.8 [facility] Comment on above: Performed By: #### C BC #### [facility] [address] [place] [address] Dr. Mariama Matamoros Lymphocytes/100 WBC (Bld) 28.2 % Normal 20.5-60.0 [facility] Comment on above: Performed By: #### C BC #### [facility] [address] [place] [address] Dr. Mariama Matamoros MANUAL DIFF REQ NO Normal [facility] Comment on above: Performed By: #### C BC #### [facility] [address] [place] [address] Dr. Mariama Matamoros MCH (RBC) [Entitic mass] 25.2 pg Critically low 26.7-34 .0 [facility] Comment on above: Performed By: #### C BC #### [facility] [address] [place] [address] Dr. Mariama Matamoros MCHC (RBC) [Mass/Vol] 31.1 g/dL Normal 29.9-35.2 [facility] Comment on above: Performed By: #### C BC #### [facility] [address] [place] [address] [address] Mariama Matamoros MCV (RBC) [Entitic vol] 81.0 fL Normal 81.0-99.0 [facility] Comment on above: Performed By: #### C BC #### [facility] [address] [place] [address] [address] Mariama Matamoros MONO # 0.6 103/ul Normal 0.3-0.8 [facility] Comment on above: Performed By: #### C BC #### [facility] [address] [place] [address] [address] Mariama Matamoros Monocytes/100 WBC (Bld) 6.3 % Normal 1.7-12.0 [facility] Comment on above: Performed By: #### C BC #### [facility] [address] [place] [address] Dr. Mariama Matamoros NEUT # 5.9 103/ul Normal 1.4-6.5 [facility] Comment on above: Performed By: #### C BC #### [facility] [address] [place] [address] [address] Mariama Matamoros Neutrophils/100 WBC (Bld) 62.1 % Normal 43.0-75.0 [facility] Comment on above: Performed By: #### C BC #### [facility] [address] [place] [address] [address] Mariama Matamoros Platelet mean volume (Bld) [Entitic vol] 11.1 fL Normal 9.5-13.5 [facility] Comment on above: Performed By: #### C BC #### [facility] [address] [place] [address] [address] Mariama Matamoros PLT 287 103/ul Normal 150-450 [facility] Comment on above: Performed By: #### C BC #### [facility] [address] [place] [address] [address] Mariama Matamoros RBC 5.16 106/ul Normal 4.20-5.40 [facility] Comment on above: Performed By: #### C BC #### [facility] [address] [place] [address] Dr. Mariama Matamoros WBC 9.5 103/ul Normal 4.0-11.0 [facility] Comment on above: Performed By: #### C BC #### [facility] [address] [place] [address] Dr. Mariama Matamoros FREE T4on 05-01-2022 Free T4 [Mass/Vol] 1.02 ng/dL Normal 0.76-1.46 [facility] Comment on above: Performed By: #### F T4 #### [facility] [address] [place] [address] Dr. Mariama Matamoros GLYCOHEMOGLOBIN A1Con 2021 ADA RECOMMENDATION SEE BELOW Normal [facility] Comment on above: Result Comment: ADA RECOMMENDED LIMIT 4.0 - 6.0 ADA THERAPEUTIC TARGET < 7.0 ACTION SUGGESTED > 7.0 Performed By: #### A 1C #### [facility] [address] [place] [address] Dr. Mariama Matamoros Glucose [Mass/Vol] 111 mg/dL Normal [facility] Comment on above: Performed By: #### A 1C #### [facility] [address] [place] [address] Dr. Mariama Matamoros HbA1c (Bld) [Mass fraction] 5.5 % Normal 4.5-6.2 [facility] Comment on above: Performed By: #### A 1C #### [facility] [address] [place] [address] Dr. Mariama Matamoros TSHon 05-01-2022 TSH 1.559 uIU/mL Normal 0.358-3.740 [facility] Comment on above: Performed By: #### T SH #### [facility] [address] [place] [address] Dr. Mariama Matamoros PAP ACOG PANEL 2: 21 to 29on 04-02-2022 . . Normal [facility] Comment on above: Performed By: #### [id number] #### [facility] [address] [place] [address] Dr. Mariama Matamoros Age Gdln ACOG Testing 21-29 Normal [facility] Comment on above: Performed By: #### 4 [id number] #### [facility] [address] [place] [address] Dr. Mariama Matamoros DIAGNOSIS: Comment Normal [facility] Comment on above: Result Comment: NEGA TIVE FOR INTRAEPITHELIAL LESION OR MALIGNANCY. Performed By: #### 4 [id number] #### [facility] [address] [place] [address] Dr. Mariama Matamoros Methodology: Comment Normal [facility] Comment on above: Result Comment: This liquid based ThinPrep(R) pap test was screened with the use of an image guided system. Performed By: #### 4 [id number] #### [facility] [address] [place] [address] Dr. Mariama Matamoros Note: Comment Normal [facility] Comment on above: Result Comment: The Pap smear is a screening test designed to aid in the detection of premalignant and malignant conditions of the uterine cervix. It is not a diagnostic procedure and should not be used as the sole means of detecting cervical cancer. Both false-positive and false-negative reports do occur. . Performed By: #### 4 [id number] #### [facility] [address] [place] [address] Dr. Mariama Matamoros Performed by: Comment Normal [facility] Comment on above: Result Comment: Kamilah Roque Optical Worker (ASCP) Performed By: #### 4 [id number] #### [facility] [address] [place] [address] Dr. Mariama Matamoros Reflex Criteria: Comment Normal [facility] Comment on above: Result Comment: The HPV DNA reflex criteria were not met with this specimen result therefore, no HPV testing was performed. . Performed By: #### 4 [id number] #### [facility] [address] [place] [address] Dr. Mariama Matamoros Specimen adequacy: Comment Normal [facility] Comment on above: Result Comment: Sati sfactory for evaluation. No endocervical component is identified. Performed By: #### 4 [id number] #### [facility] [address] [place] [address] [address] 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 She states she was treated with Z-Cesar and albuterol inhaler for bronchitis type viral illness about 2 weeks ago at an urgent care in [place]. She denies any cough congestion that is [...] no rhinorrhea, sneezing, atopic dermatitis, frequent URIs [facility] Nursing notes reviewed and confirmed by me. [...] rash GCS: 15 HISTORY OF PRESENTING ILLNESS MALINI is a 26 year old Female and [...] SIGNS: T PRBP SpO2O2(LPM) %FiO2 Method 23-Oct-2021 15:50:[id number] MDM MDM/ED COURSE: Patient 2 weeks post viral syndrome states she is improving. Lungs are clear bilaterally. Patient well-appearing with normal vital signs. Patient does have significant bulging and purulence with opacification noted to the right TM with retra (more content not included)... Normal [facility] Vital Signs Date Time Vital Sign Value Performing Clinician Facility 05-11-2024 14:49-0400 Body mass index (BMI) [Ratio] 39.03 kg/m2 [employer] Work Phone: [facility] 05-11-2024 14:49-0400 Body weight 109.68 kg [employer] Work Phone: [facility] 05-11-2024 14:49-0400 Diastolic blood pressure 60 mm[Hg] [employer] Work Phone: [facility] 05-11-2024 14:49-0400 Systolic blood pressure 118 mm[Hg] [employer] Work Phone: [facility] 10-23-2021 17:50-0400 Body height 167.6 cm No Pcp Required [facility] 10-23-2021 17:50-0400 Body temperature 96.08 [degF] No Pcp Required [facility] 10-23-2021 17:50-0400 Diastolic blood pressure 71 mm[Hg] No Pcp Required [facility] 10-23-2021 17:50-0400 Heart rate 78 /min No Pcp Required [facility] 10-23-2021 17:50-0400 Respiratory rate 16 /min No Pcp Required [facility] 10-23-2021 17:50-0400 SaO2% (BldA) [Mass fraction] 97 % No Pcp Required [facility] 10-23-2021 17:50-0400 Systolic blood pressure 105 mm[Hg] No Pcp Required [facility] Encounters Encounter Date Encounter Type Care Provider Facility Start: 05-11-2024 End: 05-11-2024 Patient encounter procedure Tiff Longo DO Work Phone: [facility] Comment on above: LGSIL of cervix of u ndetermined significance; Weight gain Start: 05-11-2024 End: 05-11-2024 ambulatory TIFF LONGO Not Available Start: 04-06-2024 End: 04-06-2024 ambulatory TIFF LONGO Not Available Start: 03-21-2024 End: 03-21-2024 ambulatory Valentin GALLEGOS Facility:[facility] Start: 12-15-2023 End: 12-15-2023 ambulatory SHIMA GREENFIELDEY Not Available Start: 08-11-2023 End: 08-11-2023 ambulatory SHIMA PENDLETON Not Available Start: 10-22-2022 End: 10-23-2022 Emergency department patient visit KOURTNEY PATEL [facility] Start: 05-01-2022 End: 05-02-[address] TIFF LONGO Facility:[facility] Start: 03-25-2022 End: 03-25-[address] TIFF LONGO Facility:[facility] Start: 10-23-2021 End: 10-23-2021 Emergency department patient visit Jade Rehman [facility] Procedures Date Procedure Procedure Detail Performing Clinician Start: 05-11-2024 Urine test visual color cmprsn meths Tiff Longo DO Work Phone: Plan of Treatment Date Care Activity Detail Author Start: 04-13-2025 End: 04-13-2025 Patient encounter procedure 04/13/2025 10:00 AM EDT Office Visit [facility] [address], [place] [address] Tiff Longo DO [address] [place] [address] [facility] Start: 11-15-2024 End: 11-15-2024 Patient encounter procedure 11/15/2024 10:00 AM EDT Procedure Visit [facility] [address], [place] [address] Qing, Tiff, [address] [place] [address] [facility] Start: 05-11-2024 End: 05-11-2025 Colposcopy Colposcopy Procedures Routine LGSIL of cervix of undetermined significance Expected: 05/11/2024 (Approximate), Expires: 05/11/2025 [facility] Work Phone: Comment on above: Expected: 05/11/2024 (Approximate), Expires: 05/11/2025 Start: 03-27-2024 Influenza vaccination Influenza Vacc ine (#1) [facility] Payers Date Payer Category Payer [facility] er [id number] 2022 Unknown [id number] 1996 Unknown [id number] 1996 Unknown [id number] 1996 Unknown [id number] 1996 Unknown [id number] 1996 Unknown [id number] 1996 Unknown [id number] 1996 Unknown [id number] 1996 Unknown [id number] 1959 Unknown [id number] Unknown [employer] [place] Self-pay Social History Date Type Detail Facility [facility] Tobacco smoking consumption unknown [facility] Start: 04-06-2024 Tobacco smoking stat us NHIS Never smoked tobacco [facility] Start: 04-06-2024 Tobacco use and exposure Smokeless tobacco non-user [facility] Start: 05-11-2024 Alcoholic beverage intake Lifetime non-drinker (finding) [facility] Start: 08-11-2023 History of Social function [facility] Start: 08-11-2023 Tobacco use panel [facility] Start: 04-06-2024 Tobacco Comment None [facility] Start: 12-26-2022 Alcohol Comment caffeine intake: yes [facility] Start: 1995 Sex assigned at Not on file [facility] History of Present illness Narrative 05-11-2024 Adrianasheri Landeros LPN - 05/11/2024 2:30 PM EDT Note Date & Type Note Facility 05-11-2024 History of Presen t illness Narrative Reason for Appointment: Patient ID: Malini Yadav is a 29 y.o. female who presents for Colposcopy Patient presents today for Repeat Pap. and Consult appointment. MEDICATIONS Current Outpatient Medications Medication Instructions buPROPion XL (WELLBUTRIN XL) 150 mg, Oral, Daily, Do not crush, chew, or split. clindamycin (Cleocin-T) 1 % lotion Topical, 2 times daily metFORMIN XR (GLUCOPHAGE-XR) 1,000 mg, Oral, Daily, Do not crush, chew, or split. spironolactone (ALDACTONE) 50 mg, Oral, Daily Tirzepatide (Mounjaro) 2.5 MG/0.5ML solution auto-injector 0.5 mL, Subcutaneous, Weekly ALLERGIES No Known Allergies PROBLEMS Active Ambulatory Problems Diagnosis Date Noted Encounter for weight management 08/12/2023 Resolved Ambulatory Problems Diagnosis Date Noted No Resolved Ambulatory Problems Past Medical History: Diagnosis Date Acne Anxiety Chronic fatigue Dysmenorrhea Hair loss Hirsutism LGSIL on Pap smear of cervix Menorrhagia PCOS (polycystic ovarian syndrome) Weight gain HISTORY PAST MEDICAL HISTORY SOCIAL HISTORY Past Medical History: Diagnosis Date Acne Anxiety Chronic fatigue Dysmenorrhea Hair loss Hirsutism LGSIL on Pap smear of cervix Menorrhagia PCOS (polycystic ovarian syndrome) Weight gain Social History Tobacco Use Smoking status: Never Smokeless tobacco: Never Tobacco comments: None Substance Use Topics Alcohol use: Never Comment: caffeine intake: yes Drug use: Never FAMILY HISTORY Family History Problem Relation Name Age of Onset Migraines Mother Tamanna Hypertension Brother No Known Problems Daughter Tara No Known Problems Son Andrew SURGICAL HISTORY Past Surgical History: Procedure Laterality Date SECTION, LOW TRANSVERSE 10/27/2015 SECTION, LOW TRANSVERSE 07/24/2020 TUBAL LIGATION 02/13/23 REVIEW OF SYSTEMS Review of Systems: Review of Systems Constitutional: Negative. HENT: Negative. Eyes: Negative. Respiratory: Negative. Cardiovascular: Negative. Gastrointestinal: Negative. Genitourinary: Negative. Musculoskeletal: Negative. Skin: Negative. Neurological: Negative. All other systems reviewed and are negative. Hematological: Negative. Endocrine: Negative. Allergic/Immunologic: Negative. OBJECTIVE Objective: Physical Exam Constitutional: Appearance: Normal appearance. She is well-developed. Genitourinary: Vulva normal. Cardiovascular: Rate and Rhythm: Normal rate and regular rhythm. Pulmonary: Effort: Pulmonary effort is normal. Breath sounds: Normal breath sounds. Abdominal: General: Bowel sounds are normal. There is no distension. Palpations: Abdomen is soft. Tenderness: There is no abdominal tenderness. There is no guarding or rebound. Musculoskeletal: General: No swelling. Normal range of motion. Right lower leg: No edema. Left lower leg: No edema. Neurological: Mental Status: She is alert and oriented to person, place, and time. Skin: General: Skin is warm and dry. Psychiatric: Mood and Affect: Mood normal. Behavior: Behavior normal. Vitals and nursing note reviewed. Exam conducted with a supervisor spring up present. Vitals: Estimated body mass index is 39.03 kg/m as calculated from the following: Height as of 04/06/24: 5' 6 . Weight as of this encounter: 241 lb 12.8 oz. BP: 118/60 Patient's last menstrual period was 05/04/2024. ASSESSMENT & PLAN ICD-10-CM 1. LGSIL of cervix of undetermined significance R87.612 POCT , urine manually resulted Colposcopy Colposcopy: Patient is doing well and has no complaints. Pap results have been reviewed with the patient in great detail and patient voiced understanding. Patient presents today for a Colposcopy with ECC 3 oclock position biopsy. Patient was placed in dorsal lithotomy position with feet in stirrups, a sterile speculum was placed into the vagina and the cervix was visualized. Cervix was cleansed with vinegar. Postprocedural instructions given. All if patients questions answered and she expressed understanding. Advised to call in interim with questions or concerns. Follow Up: Patient is to return in 6 months for Repeat Pap. Documented by Adriana Landeros LPN on behalf of: Tiff Longo DO documented in this encounter [facility] Evaluation note Note Date & Type Note Facility Evaluation note Diagnosis LGSIL of cervix of undetermined significance Weight gain Other symptoms concerning nutrition, metabolism, and development documented in this encounter [facility] Summary Purpose Family History No Family History [...] section and content) DATE CREATED AUTHOR 10/25/2021 [facility] DATE CREATED AUTHOR AUTHOR'S ORGANIZ ATION 05/05/2022 [facility] DATE CREATED AUTHOR AUTHOR'S ORGANIZ ATION 10/30/2022 [facility] DATE CREATED AUTHOR AUTHOR[facility]S ORGANIZ ATION [facility] DATE CREATED AUTHOR AUTHOR'S ORGANIZ ATION 05/14/2024 [facility] EPIC Reason for Visit (unrecogniz ed section and content) Reason Comments Colposcopy Care Teams (unrecognized sec tion and content) Pump Installer Relationship Specialty Start Date End Date Alen Ervin MD [address] [place] [id number] PCP - General Family Medicine 12/02/22 FOR RECORDS PERTAINING TO PATIENTS WHO ARE [...] BE BASED ON THE PRIMARY CLINICAL RECORDS. [facility]. provides no warranty or guarantee of the accuracy or completeness of information in this document.
== END 2024-05-11 10:26 | disposition home or self-care (01) ==
LOC: LAB 10:25
PROVIDERS: Visit Provider Obstetrics & Gynecology
DX: R87.612 Low grade squamous intraepithelial lesion on cytologic smear of cervix (LGSIL) (principal)

== ENCOUNTER 2024-08-15 09:00 | Outpatient (OUT) | payer BC, SELFPAY ==
--- OUTSIDE RECORDS SUMMARY | 2024-08-15 09:04 | XMS_ITS | CCD ---
Author Organization [facility] Clini[facility] Care Team Providers Care Animal Control Supervisor Name Role Phone Required, No Pcp Unavailable [...] Unavailable Alen Ervin MD Primary Care Provider LAUREN PENDLETON Attending Unavailable LAUREN PENDLETON Attending Unavailable TIFF LONGO Attending Unavailable TIFF LONGO Attending Unavailable LAUREN PENDLETON Attending Unavailable Tiff Longo DO Attending Provider Medications Current Medications Medication Drug Class(es) Dates Sig (Normalized) Sig (Original) amoxicillin 875 mg oral tablet (1 source) Penicillin-class Antibacterial Start: 07-31-2024 take 1 tablet by mouth twice daily Amoxicillin 875 mg tablet Active 875 MG PO Twice daily 15 05July 31, 2024 12:00am amoxicillin 875 mg / clavulanate 125 mg [...] food or milk. 24 hr buPROPion hydrochloride 300 mg extended release oral tablet (14 sources) Aminoketone Start: 07-31-2024 take 1 tablet by mouth every twenty-four hours Bupropion Hcl 300 mg tablet extended release 24 hr Active MG PO July 31, 2024 12:00am Start: 07-18-2024 End: 07-18-2025 take 1 tablet by mouth once daily buPROPion XL (Wellbutrin XL) 300 MG 24 hr tablet Indications: Major depressive disorder, remission status unspecified, unspecified whether recurrent (CMS/HCC) Take 1 tablet (300 mg) by mouth Daily Do not crush, chew, or split. 30 tablet 07/18/2024 07/18/2025 Active Start: 04-06-2024 End: 04-06-2025 take 1 tablet by mouth once daily buPROPion XL (Wellbutrin XL) 150 MG 24 hr tablet Indications: Major depressive disorder, remission status unspecified, unspecified whether recurrent (CMS/HCC) Take 1 tablet (150 mg) by mouth Daily Do not crush, chew, or split. 360 tablet 04/06/2024 07/18/2024 Discontinued Start: 06-02-2023 End: 06-01-2024 take 1 tablet by mouth every twenty-four hours in the morning buPROPion XL (Wellbutrin XL) 150 MG 24 hr tablet Indications: Major depressive disorder, remission status unspecified, unspecified whether recurrent (CMS/HCC) Take 1 tablet (150 mg) by mouth in the morning. Do not crush, chew, or split.. 360 tablet 06/02/2023 04/06/2024 Discontinued (Reorder) take 1 tablet by garcia th every twenty-four hours Wellbutrin XL 150 mg/24 hours oral tablet, extended release ; 1 tab(s) orally every 24 hours Quantity: 0 Refills: 0 Ordered: 23-Oct-2021 Fernando [place] Generic Substitution Allowed clindamycin 10 mg/ml topical lotion (7 sources) Lincosamide Antibacterial Start: 04-06-2024 End: 04-06-2025 clindamycin (Cleocin-T) 1 % lotion Indications: Acne, unspecified acne type Apply topically 2 (two) times a day 60 mL 04/06/2024 04/06/2025 Active metFORMIN hydrochloride 500 mg oral tablet (12 sources) Biguanide Start: 07-31-2024 take 1 tablet by mouth twice daily at mealtime Metformin 500 mg tablet Active 500 MG PO Twice daily with meals July 31, 2024 12:00am Start: 04-06-2024 End: 04-06-2025 take 2 tablets by mouth once daily metFORMIN XR (Glucophage-XR) 500 MG 24 hr tablet Indications: Insulin resistance Take 2 tablets (1,000 mg) by mouth Daily Do not crush, chew, or split. 60 tablet 04/06/2024 04/06/2025 Active Start: 06-02-2023 End: 06-01-2024 take 1 tablet by mouth in the morning, then take 1 tablet by mouth every twenty-four hours at mealtime metFORMIN, OSM, (Fortamet) 500 MG 24 hr tablet Indications: Insulin resistance Take 1 tablet (500 mg) by mouth in the morning and 1 tablet (500 mg) in the evening. Take with meals. Do not crush, chew, or split.. 720 tablet 06/02/2023 04/06/2024 Discontinued (Reorder) take 1 tablet by garcia th twice daily metFORMIN 500 mg oral tablet ; 1 tab(s) orally 2 times a day Quantity: 0 Refills: 0 Ordered: 23-Oct-2021 Fernando [place] Generic Substitution Allowed spironolactone 100 mg oral tablet (12 sources) Aldosterone Antagonist Start: 07-31-2024 take 1 tablet by mouth once daily Spironolactone 100 mg tablet Active 100 MG PO Daily July 31, 2024 12:00am Start: 06-02-2023 End: 04-06-2025 take 1 tablet by mouth once daily spironolactone (Aldactone) 50 MG tablet Indications: Blood pressure instability Take 1 tablet (50 mg) by mouth Daily 360 tablet 04/06/2024 04/06/2025 Active take 1 tablet by garcia th once daily spironolactone 50 mg oral tablet ; 1 tab(s) orally once a day Quantity: 0 Refills: 0 Ordered: 23-Oct-2021 Fernando [place] Generic Substitution Allowed Tirzepatide (1 source) Start: 07-31-2024 Tirzepatide (Mounjaro) 5 mg/0.5 mL pen injector Active MG SUBCUT July 31, 2024 12:00am Tirzepatide (Mounjaro) 2.5 MG/0.5ML solution auto-injector (1 source) Start: 05-09-2024 End: 06-08-2024 inject 0.5 mL by subcutaneous injection every week Tirzepatide (Mounjaro) 2.5 MG/0.5ML solution auto-injector Indications: Weight gain INJECT 0.5 ML UNDER THE SKIN 1 (ONE) TIME PER WEEK 0.5 mL 2 05/09/2024 06/08/2024 Active Tirzepatide (Mounjaro) 2.5 MG/0.5ML solution pen-injector (3 sources) Start: 04-06-2024 End: 05-06-2024 inject 0.5 mL by subcutaneous injection every week Tirzepatide (Mounjaro) 2.5 MG/0.5ML solution pen-injector Indications: Weight gain Inject 0.5 mL under the skin 1 (one) time per week 2 mL 04/06/2024 05/06/2024 Active Tirzepatide (Mounjaro) 7.5 MG/0.5ML solution auto-injector (2 sources) Start: 07-18-2024 End: 08-17-2024 inject 0.5 mL by subcutaneous injection every week Tirzepatide (Mounjaro) 7.5 MG/0.5ML solution auto-injector Indications: Encounter for weight management Inject 0.5 mL under the skin 1 (one) time per week 2 mL 3 07/18/2024 08/17/2024 Active Completed/Discontinued Medications Medication Drug Class(es) Dates Sig (Normalized) Sig (Original) azithromycin 500 mg oral tablet (3 sources) Macrolide Antimicrobial Start: 12-18-2023 End: 04-06-2024 take 1 tablet by mouth once daily azithromycin (Zithromax) 500 MG tablet Indications: Bacterial infection due to mycoplasma Day 1: Take 2 tablets PO onetime dose; Day 2,3,4: Take 1 tablet daily 5 tablet 12/18/2023 04/06/2024 Discontinued minocycline 50 mg oral tablet (4 sources) Tetracycline-class Drug Start: 04-06-2024 End: 05-11-2024 take 1 tablet by mouth in the morning minocycline (Dynacin) 50 MG tablet Indications: Acne, unspecified acne type Take 1 tablet (50 mg) by mouth in the morning and 1 tablet (50 mg) before bedtime. 60 tablet 1 04/06/2024 05/11/2024 Discontinued 1 mg dose 1.5 ml semaglutide 1.34 mg/ml pen injector (4 sources) Start: 01-13-2024 End: 05-11-2024 inject 1 mg by subcutaneous injection every week semaglutide (Ozempic, 1 MG/DOSE,) 2 MG/1.5ML solution pen-injector Indications: Insulin resistance Inject 1 mg under the skin 1 (one) time per week for 28 days 3 mL 01/13/2024 05/11/2024 Discontinued Semaglutide, 2 MG/DOSE, (Ozempic, 2 MG/DOSE,) 8 MG/3ML solution pen-injector (4 sources) Start: 02-24-2024 End: 05-11-2024 Semaglutide, 2 MG/DOSE, (Ozempic, 2 MG/DOSE,) 8 MG/3ML solution pen-injector Indications: Insulin resistance Inject 8 mg under the skin 1 (one) time per week for 28 days 3 mL 02/24/2024 05/11/2024 Discontinued Start: 02-24-2024 Semaglutide, 2 MG/DOSE, (Ozempic, 2 MG/DOSE,) 8 MG/3ML solution pen-injector Indications: Insulin resistance Inject 8 mg under the skin 1 (one) time per week for 28 days 3 mL 02/24/2024 Active Tirzepatide (Mounjaro) 5 MG/0.5ML solution auto-injector (4 sources) Start: 06-27-2024 End: 07-18-2024 inject 0.5 mL by subcutaneous injection every week Tirzepatide (Mounjaro) 5 MG/0.5ML solution auto-injector Indications: Weight gain Inject 0.5 mL under the skin 1 (one) time per week 2 mL 06/27/2024 07/18/2024 Discontinued Start: 06-27-2024 End: 07-27-2024 inject 0.5 mL by subcutaneous injection every week Tirzepatide (Mounjaro) 5 MG/0.5ML solution auto-injector Indications: Weight gain Inject 0.5 mL under the skin 1 (one) time per week 2 mL 06/27/2024 07/27/2024 Active Start: 05-11-2024 End: 06-10-2024 inject 0.5 mL by subcutaneous injection every week Tirzepatide (Mounjaro) 5 MG/0.5ML solution auto-injector Indications: Weight gain Inject 0.5 mL under the skin 1 (one) time per week 2 mL 05/11/2024 06/10/2024 Active Problems Active Problems Problem Classification Problem Date Documented Date Episodic/Chronic Administrative/social admission (10 sources) Patient encounter status; Translations: [Persons encountering health services in other specified circumstances] Onset: 08-12-2023 08-12-2023 Episodic Cancer of cervix (1 source) Cervical intraepithelial [...] [ENC SCREENING HUMAN PAPILLOMAVIRUS] Onset: 03-26-2022 Episodic Mood disorders (4 sources) Major depressive disorder; Translations: [Major depressive disorder, single episode, unspecified] 04-06-2024 Chronic Other endocrine disorders (4 sources) Polycystic ovarian syndrome; Translations: [POLYCYSTIC OVARIAN SYNDROME] Onset: 05-01-2022 Chronic Other nutritional; endocrine; and metabolic disorders (2 sources) Insulin resistance; Translations: [Insulin resistance] 04-06-2024 Chronic Other nutritional; endocrine; and metabolic disorders (1 source) Weight increased; Translations: [Abnormal weight gain] 05-11-2024 Episodic Other screening for suspected conditions (not mental disorders or infectious disease) (4 sources) Encounter for screening for malignant neoplasm of cervix; Translations: [ENC SCREENING MALIG NEOPLASM CERV] Onset: 03-25-2022 Episodic Other upper respiratory infections (2 sources) Sore throat symptom; Translations: [Acute pharyngitis, unspecified] 07-31-2024 Episodic Otitis media and related conditions (1 source) Acute otitis media; Translations: [Unspecified otitis media] 10-23-2021 Episodic Unclassified (2 sources) EAR PAIN 10-23-2021 Comment on above: EAR PAIN Unclassified (1 source) AOM (acute otitis media) 10-23-2021 Past or Other Problems Problem Classification Problem Date Documented Da te Episodic/Chronic Other circulatory disease (2 sources) Labile blood pressure; Translations: [Other disorder of circulatory system] 04-06-2024 Episodic Other nutritional; endocrine; and metabolic disorders (2 sources) Weight gain; Translations: [Abnormal weight gain] 04-06-2024 Episodic Other skin disorders (2 sources) Acne; Translations: [Acne, unspecified] 04-06-2024 Episodic Results Test Name Value Interpretation Reference Range Facility No Panel InformationOrdered By: Jarrett Jackson on 07-31-2024 Quick Strep (POC) [facility] HCG ( test) Ql (U)o n 05-11-2024 Interpretation and review of laboratory results Normal [facility] Preg Test, Ur Negative [facility] No Panel InformationOrdered By: Tiff Longo on 05-11-2024 Miscellaneous Pathology Test See comment [facility] Comment on above: See report. Scanned copy available in EMR. IGP,APTIMA HPV,AGE GDLNon AGE GDLN ACOG TESTING Note . [facility] Comment on above: TESTS RESULT FLAG UN ITS REF RANGE LAB Clinician Provided Cytology Information Source.............Cervix;Endocervix No. of containers..01 ThinPrep Vial Age Algo ACOG Taylor... FLAG LEGEND: L-Low Normal,H-High Normal,LL-Alert Low,HH-Alert High <-Panic Low,>-Panic High,A-Abnormal,AA-Critical Abnormal Performed at: 01 =G [facility] [address] [place] [address] Yesenia Cavazos MD, IGP, RFX APTIMA HPV ASCU Note Abnormal . [facility] Comment on above: TESTS RESULT FLAG UN ITS REF RANGE LAB DIAGNOSIS: [A] 02 EPITHELIAL CELL ABNORMALITY. LOW GRADE SQUAMOUS INTRAEPITHELIAL LESION (LSIL). Recommendation: [A] 02 Suggest follow up as clinically appropriate. Specimen adequacy: 02 Satisfactory for evaluation. Endocervical and/or squamous metaplastic cells (endocervical component) are present. Performed by: 02 Juliet Bernal, Structures Engineer (ASCP) Electronically si... 02 Haydee Robertson MD, Pathologist . 02 Pathologist ICD10: 02 R87.612 Note: Note 03 The Pap smear is a screening test designed to aid in the detection of premalignant and malignant conditions of the uterine cervix. It is not a diagnostic procedure and should not be used as the sole means of detecting cervical cancer. Both false-positive and false-negative reports do occur. Test Methodology: Note 03 This liquid based ThinPrep(R) pap test was screened with the use of an image guided system. . 02 The HPV DNA reflex criteria were not met with this specimen result therefore, no HPV testing was performed. FLAG LEGEND: L-Low Normal,H-High Normal,LL-Alert Low,HH-Alert High <-Panic Low,>-Panic High,A-Abnormal,AA-Critical Abnormal Performed at: 02 [facility] [address] [place] [address] Matt Zaman MD, [address] [address] Yesenia Cavazos MD, Performed at: - [address] [id number] Machine Operator Hop Picker: Yesenia Cavazos MD, Phone: [phone] Performed at: [facility] [address] [address] [place], [place] [id number] Machine Operator Hop Picker: Matt Zaman MD, Phone: [phone] Interpretation and review of laboratory results Abnormal [facility] BRUSH-SPATULA CERVIX ENDOCERVIX [facility] XR FOOT LEFT 3+ VIEWS (STAND [...] on ThuOct 22, 2022 10:00:45 PM EDT [facility] Comment on above: Order Comment: Injur y/Trauma or Illness?:Injury/Trauma How long have you had these symptoms (acute/chronic)?:Acute Reason for exam?:hit left foot on couch yesterday, pain and bruising to lt 4th toe History of cancer?:no Surgeries, chemotherapy, or radiation?:no Type of Exam?:Initial Mechanism of injury?:hit left foot on couch DHEA SERUMon 05-05-2022 Dehydroepiandrosterone (DHEA) 454 ng/dL Normal 31-701 [facility] Comment on above: Result Comment: Age [...] 89 Performed By: #### Sergio ONOFRE. #### [facility] [address] [place] [address] Dr. Mariama Matamoros DHEA-SULFATEon 05-02-2022 DHEA-Sulfate 316.0 ug/dL Normal 84.8-378.0 [facility] Comment on above: Performed By: #### D DOTTIE #### [facility] [address] [address] [address] Mariama Matamoros FSHon 05-02-2022 FSH 3.9 mIU/mL Normal [facility] Comment on above: Result Comment: Adul t Female: Follicular phase 3.5 - 12.5 Ovulation phase 4.7 - 21.5 Luteal phase 1.7 - 7.7 Postmenopausal 25.8 - 134.8 Performed By: #### L BCFSH #### [facility] [address] [address] [address] Mariama Matamoros LUTEINIZING HORMONE (LH)on 1 LH 5.6 mIU/mL Normal [facility] Comment on above: Result Comment: Adul t Female: Follicular phase 2.4 - 12.6 Ovulation phase 14.0 - 95.6 Luteal phase 1.0 - 11.4 Postmenopausal 7.7 - 58.5 Performed By: #### L BCLH #### [facility] [address] [address] [address] Mariama Matamoros CBC AUTO DIFFon 05-01-2022 BASO # 0.1 103/ul Normal 0.0-0.1 [facility] Comment on above: Performed By: #### C BC #### [facility] [address] [address] [address] Mariama Matamoros Basophils/100 WBC (Bld) 0.7 % Normal 0.2-2.0 [facility] Comment on above: Performed By: #### C BC #### [facility] [address] [place] [address] Dr. Mariama Matamoros EO # 0.2 103/ul Normal 0.0-0.7 [facility] Comment on above: Performed By: #### C BC #### [facility] [address] [place] [address] Dr. Mariama Matamoros Eosinophils/100 WBC (Bld) 2.3 % Normal 0.9-7.0 [facility] Comment on above: Performed By: #### C BC #### [facility] [address] [place] [address] Dr. Mariama Matamoros Erythrocyte distribution width (RBC) [Ratio] 16.0 % Critically high 11.0-15.0 [facility] Comment on above: Performed By: #### C BC #### [facility] [address] [place] [address] Dr. Mariama Matamoros Hematocrit (Bld) [Volume fraction] 41.8 % Normal 36.0-48.0 [facility] Comment on above: Performed By: #### C BC #### [facility] [address] [place] [address] Dr. Mariama Matamoros Hemoglobin (Bld) [Mass/Vol] 13.0 g/dL Normal 12.0-16.0 [facility] Comment on above: Performed By: #### C BC #### [facility] [address] [place] [address] Dr. Mariama Matamoros IG # 0.04 10e3/ul Critically high 0.00-0.03 [facility] Comment on above: Performed By: #### C BC #### [facility] [address] [place] [address] Dr. Mariama Matamoros IG % 0.4 % Normal 0.0-0.5 [facility] Comment on above: Performed By: #### C BC #### [facility] [address] [place] [address] Dr. Mariama Matamoros LYMPH # 2.7 103/ul Normal 1.2-3.8 [facility] Comment on above: Performed By: #### C BC #### [facility] [address] [place] [address] Dr. Mariama Matamoros Lymphocytes/100 WBC (Bld) 28.2 % Normal 20.5-60.0 [facility] Comment on above: Performed By: #### C BC #### [facility] [address] [place] [address] Dr. Mariama Matamoros MANUAL DIFF REQ NO Normal [facility] Comment on above: Performed By: #### C BC #### [facility] [address] [place] [address] Dr. Mariama Matamoros MCH (RBC) [Entitic mass] 25.2 pg Critically low 26.7-34 .0 [facility] Comment on above: Performed By: #### C BC #### [facility] [address] [place] [address] Dr. Mariama Matamoros MCHC (RBC) [Mass/Vol] 31.1 g/dL Normal 29.9-35.2 [facility] Comment on above: Performed By: #### C BC #### [facility] [address] [place] [address] Dr. Mariama Matamoros MCV (RBC) [Entitic vol] 81.0 fL Normal 81.0-99.0 [facility] Comment on above: Performed By: #### C BC #### [facility] [address] [place] [address] Dr. Mariama Matamoros MONO # 0.6 103/ul Normal 0.3-0.8 [facility] Comment on above: Performed By: #### C BC #### [facility] [address] [place] [address] Dr. Mariama Matamoros Monocytes/100 WBC (Bld) 6.3 % Normal 1.7-12.0 [facility] Comment on above: Performed By: #### C BC #### [facility] [address] [place] [address] Dr. Mariama Matamoros NEUT # 5.9 103/ul Normal 1.4-6.5 [facility] Comment on above: Performed By: #### C BC #### [facility] [address] [place] [address] Dr. Mariama Matamoros Neutrophils/100 WBC (Bld) 62.1 % Normal 43.0-75.0 [facility] Comment on above: Performed By: #### C BC #### [facility] [address] [place] [address] Dr. Mariama Matamoros Platelet mean volume (Bld) [Entitic vol] 11.1 fL Normal 9.5-13.5 [facility] Comment on above: Performed By: #### C BC #### [facility] [address] [place] [address] Dr. Mariama Matamoros PLT 287 103/ul Normal 150-450 [facility] Comment on above: Performed By: #### C BC #### [facility] [address] [place] [address] Dr. Mariama Matamoros RBC 5.16 106/ul Normal 4.20-5.40 [facility] Comment on above: Performed By: #### C BC #### [facility] [address] [place] [address] Dr. Mariama Matamoros WBC 9.5 103/ul Normal 4.0-11.0 [facility] Comment on above: Performed By: #### C BC #### [facility] [address] [place] [address] Dr. Mariama Matamoros FREE T4on 05-01-2022 Free T4 [Mass/Vol] 1.02 ng/dL Normal 0.76-1.46 [facility] Comment on above: Performed By: #### F T4 #### [facility] [address] [place] [address] Dr. Mariama Matamoros GLYCOHEMOGLOBIN A1Con 2021 ADA RECOMMENDATION SEE BELOW Normal [facility] Comment on above: Result Comment: ADA RECOMMENDED LIMIT 4.0 - 6.0 ADA THERAPEUTIC TARGET < 7.0 ACTION SUGGESTED > 7.0 Performed By: #### A 1C #### [facility] [address] [address] [address] Mariama Matamoros Glucose [Mass/Vol] 111 mg/dL Normal [facility] Comment on above: Performed By: #### A 1C #### [facility] [address] [place] [address] Dr. Mariama Matamoros HbA1c (Bld) [Mass fraction] 5.5 % Normal 4.5-6.2 [facility] Comment on above: Performed By: #### A 1C #### [facility] [address] [place] [address] Dr. Mariama Matamoros TSHon 05-01-2022 TSH 1.559 uIU/mL Normal 0.358-3.740 [facility] Comment on above: Performed By: #### T SH #### [facility] [address] [place] [address] Dr. Mariama Matamoros PAP ACOG PANEL 2: 22 to 30on 04-02-2022 . . Normal [facility] Comment on above: Performed By: #### [id number] #### [facility] [address] [place] [address] Dr. Mariama Matamoros Age Gdln ACOG Testing - Normal [facility] Comment on above: Performed By: #### [id number] #### [facility] [address] [place] [address] Dr. Mariama Matamoros DIAGNOSIS: Comment Normal [facility] Comment on above: Result Comment: NEGA TIVE FOR INTRAEPITHELIAL LESION OR MALIGNANCY. Performed By: #### [id number] #### [facility] [address] [place] [address] Dr. Mariama Matamoros Methodology: Comment Normal [facility] Comment on above: Result Comment: This liquid based ThinPrep(R) pap test was screened with the use of an image guided system. Performed By: #### [id number] #### [facility] [address] [address] [address] Mariama Matamoros Note: Comment Normal [facility] Comment on above: Result Comment: The Pap smear is a screening test designed to aid in the detection of premalignant and malignant conditions of the uterine cervix. It is not a diagnostic procedure and should not be used as the sole means of detecting cervical cancer. Both false-positive and false-negative reports do occur. . Performed By: #### [id number] #### [facility] [address] [address] [address] Mariama Matamoros Performed by: Comment Normal [facility] Comment on above: Result Comment: Kamilah Roque Structures Engineer (ASCP) Performed By: #### [id number] #### [facility] [address] [place] [address] Dr. Mariama Matamoros Reflex Criteria: Comment Normal [facility] Comment on above: Result Comment: The HPV DNA reflex criteria were not met with this specimen result therefore, no HPV testing was performed. . Performed By: #### [id number] #### [facility] [address] [address] [address] Mariama Matamoros Specimen adequacy: Comment Normal [facility] Comment on above: Result Comment: Sati sfactory for evaluation. No endocervical component is identified. Performed By: #### [id number] #### [facility] [address] [place] [address] Dr. 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 She states she was treated with Z-Cesar and albuterol inhaler for bronchitis type viral illness about 2 weeks ago at an urgent care in [place]. She denies any cough congestion that is [...] SIGNS: T PRBP SpO2O2(LPM) %FiO2 Method 23-Oct-2021 15:50:[id number] 97 MDM MDM/ED COURSE: Patient 2 weeks post viral syndrome states she is improving. Lungs are clear bilaterally. Patient well-appearing with normal vital signs. Patient does have significant bulging and purulence with opacification noted to the right TM with retra (more content not included)... Normal [facility] Vital Signs Date Time Vital Sign Value Performing Clinician Facility 07-31-2024 14:37-0500 Body height 167.64 cm Red LambdaziInstacover Work Phone: [facility] 07-31-2024 14:37-0500 Heart rate 89 /min Tiff Qing DO Work Phone: [facility] 07-31-2024 14:37-0500 SaO2% (BldA) [Mass fraction] 99 % Tiff Qing DO Work Phone: [facility] 07-18-2024 13:47-0500 Body mass index (BMI) [Ratio] 38.32 kg/m2 Lauren DEXTER Work Phone: [facility] 07-18-2024 13:47-0500 Body weight 107.68 kg Lauren DEXTER Work Phone: [facility] 07-18-2024 13:47-0500 Diastolic blood pressure 74 mm[Hg] Lauren DEXTER Work Phone: [facility] 07-18-2024 13:47-0500 Systolic blood pressure 100 mm[Hg] Lauren Canton PA Work Phone: [facility] 05-11-2024 14:49-0400 Body mass index (BMI) [Ratio] 39.03 kg/m2 Tiff Qing DO Work Phone: [facility] 05-11-2024 14:49-0400 Body weight 109.68 kg Tiff Qing DO Work Phone: [facility] 05-11-2024 14:49-0400 Diastolic blood pressure 60 mm[Hg] Tiff Qing DO Work Phone: [facility] 05-11-2024 14:49-0400 Systolic blood pressure 118 mm[Hg] Tiff Qing DO Work Phone: [facility] 04-06-2024 11:04-0400 Body height 167.6 cm Tiff Qing DO Work Phone: [facility] 04-06-2024 11:04-0400 Body mass index (BMI) [Ratio] 39.06 kg/m2 Tiff Qing DO Work Phone: [facility] 04-06-2024 11:04-0400 Body weight 109.77 kg Tiff Qing DO Work Phone: [facility] 04-06-2024 11:04-0400 Diastolic blood pressure 72 mm[Hg] Tiff Qing DO Work Phone: [facility] 04-06-2024 11:04-0400 Systolic blood pressure 110 mm[Hg] Tiff Qing DO Work Phone: [facility] 10-23-2021 17:50-0400 Body height 167.6 cm No Pcp Required [facility] 10-23-2021 17:50-0400 Body temperature 96.08 [degF] No Pcp Required [facility] 10-23-2021 17:50-0400 Diastolic blood pressure 71 mm[Hg] No Pcp Required [facility] 10-23-2021 17:50-0400 Heart rate 78 /min No Pcp Required [facility] 10-23-2021 17:50-0400 Respiratory rate 16 /min No Pcp Required [facility] 10-23-2021 17:50-0400 SaO2% (BldA) [Mass fraction] 97 % No Pcp Required [facility] 10-23-2021 17:50-0400 Systolic blood pressure 105 mm[Hg] No Pcp Required [facility] Encounters Encounter Date Encounter Type Care Provider Facility Start: 07-31-2024 End: 07-31-2024 ambulatory Tiff Qing DO Work Phone: [facility] Work Phone: Start: 07-31-2024 End: 07-31-2024 Patient encounter procedure Tiff Qing DO Work Phone: [facility] [place] Work Phone: Start: 07-18-2024 End: 07-18-2024 Bamboo flowsheet Lauren DEXTER Work Phone: [facility] Start: 07-18-2024 End: 07-18-2024 Bamboo flowseri DEXTER Work Phone: [facility] Start: 07-18-2024 End: 07-18-2024 Office outpatient visit 15 minutes Lauren Pendleton PA Work Phone: [facility] Comment on above: Encounter for weight management; Major depressive disorder, remission status unspecified, unspecified whether recurrent (CMS/HCC) Start: 07-18-2024 End: 07-18-2024 ambulatory LAUREN PENDLETON Not Available Start: 05-11-2024 End: 05-11-2024 Patient encounter procedure Tiff Qing DO Work Phone: [facility] Comment on above: 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 Start: 04-06-2024 End: 04-06-2024 Bamboo flowsheet Tiff Qing DO Work Phone: [facility] Start: 04-06-2024 End: 04-13-2024 Clinisync Result Encounter Tiff Qing DO Work Phone: [facility] External Department Unsolicited Start: 04-06-2024 End: 04-13-2024 Clinisync Result Encounter Tiff Qing DO Work Phone: [facility] External Department Unsolicited Start: 04-06-2024 End: 04-06-2024 Patient encounter procedure Tiff Qing DO Work Phone: [facility] Start: 04-06-2024 End: 04-06-2024 Periodic preventive med est patient 18-39 yrs Tiff Qing DO Work Phone: [facility] Comment on above: Well woman exam with routine gynecological exam; Acne, unspecified acne type; Weight gain; Major depressive disorder, remission status unspecified, unspecified whether recurrent (CMS/HCC); Blood pressure instability; Insulin resistance Start: 04-06-2024 End: 04-06-2024 ambulatory TIFF QING Not Available Start: 03-21-2024 End: 03-21-2024 ambulatory Valentin GALLEGOS Facility:[facility] Start: 12-15-2023 End: 12-15-2023 ambulatory LAUREN PENDLETON Not Available Start: 08-11-2023 End: 08-11-2023 ambulatory LAUREN PENDLETON Not Available Start: 10-22-2022 End: 10-23-2022 Emergency department patient visit KOURTNEY NANCE [facility] Start: 05-01-2022 End: 05-02-[address] TIFF LONGO Facility:[facility] Start: 03-25-2022 End: 03-25-[address] TIFF LONGO Facility:[facility] Start: 10-23-2021 End: 10-23-2021 Emergency department patient visit Jade Ori [facility] Procedures Date Procedure Procedure Detail Performing Clinician Start: 07-31-2024 Quick Strep (POC) Tiff Qing DO Work Phone: Start: 05-11-2024 Urine test visual color cmprsn meths Tiff Qing DO Work Phone: Start: 04-06-2024 IGP,APTIMA HPV,AGE GDLN Tiff Qing DO Work Phone: Plan of Treatment Date Care Activity Detail Author Start: 04-13-2025 End: 04-13-2025 Patient encounter procedure 04/13/2025 10:00 AM EDT Office Visit [facility] [address] [place], [place] [address] Tiff Longo DO [address] [place], [place] [id number] [facility] Start: 11-15-2024 End: 11-15-2024 Patient encounter procedure 11/15/2024 10:00 AM EDT Procedure Visit [facility] [address] [place], [place] [address] Tiff Longo DO [address] [place] [address] [facility] Start: 07-18-2024 End: 07-18-2025 Lipase [Enzymatic activity/volume] in Serum or Plasma Lipase Lab Routine Encounter for weight management Expected: 07/18/2024 (Approximate), Expires: 07/18/2025 [facility] Comment on above: Expected: 07/18/2024 (Approximate), Expires: 07/18/2025 Start: 07-18-2024 End: 07-18-2024 Patient encounter procedure 07/18/2024 1:30 PM EST Office Visit [facility] [address] [place] [address] Lauren Pendleton PA [address] [place], [place] [id number] Arrived [facility] Comment on above: Arrived Start: 05-11-2024 End: 05-11-2025 Colposcopy Colposcopy Procedures Routine LGSIL of cervix of undetermined significance Expected: 05/11/2024 (Approximate), Expires: 05/11/2025 [facility] Work Phone: Comment on above: Expected: 05/11/2024 (Approximate), Expires: 05/11/2025 Start: 04-06-2024 End: 04-06-2024 Patient encounter procedure 04/06/2024 11:00 AM EDT Office Visit [facility] [address] [place] [id number] Tiff Longo DO [address] [place] [place], [place] [id number] Arrived [facility] Comment on above: Arrived Start: 03-27-2024 Influenza vaccination Influenza Vacc ine (#1) [facility] CBC W Auto Different ial panel - Blood CBC and differential Lab Routine Encounter for weight management Ordered: 07/18/2024 [facility] Work Phone: Comment on above: Ordered: 07/18/2024 Comprehensive metabo lic 2000 panel - Serum or Plasma Comprehensive metabolic panel Lab Routine Encounter for weight management Ordered: 07/18/2024 [facility] Comment on above: Ordered: 07/18/2024 Cytology Cervical or vaginal smear or scraping study Pap Smear Pathology and Cytology Routine Well woman exam with routine gynecological exam Ordered: 04/06/2024 [facility] Work Phone: Comment on above: Ordered: 04/06/2024 Payers Date Payer Category Payer [facility] [id number] 2022 Unknown 2022 Unknown [id number] 1996 Unknown [id number] 1996 Unknown [id number] 1996 Unknown [id number] 1996 Unknown [id number] 1996 Unknown [id number] 1996 Unknown [id number] 1996 Unknown [id number] 1996 Unknown [id number] 1996 Unknown [id number] 1959 Unknown [id number] Self-pay Social History Date Type Detail Facility [facility] Tobacco smoking consumption unknown [facility] Start: 04-06-2024 End: 07-31-2024 Tobacco smoking status NHIS Never smoked tobacco [facility] Start: 12-17-2022 End: 04-06-2024 Tobacco use and exposure Smokeless tobacco non-user [facility] Start: 05-11-2024 End: 07-18-2024 Alcoholic beverage intake Lifetime non-drinker (finding) [facility] Start: 12-26-2022 End: 08-11-2023 History of Social function [facility] Start: 12-26-2022 End: 08-11-2023 Tobacco use panel [facility] Start: 04-06-2024 Tobacco Comment None [facility] Start: 12-26-2022 Alcohol Comment caffeine intake: yes [facility] Start: 1995 Sex assigned at Not on file [facility] Start: 07-31-2024 Sex Female (finding) [facility] Start: 1995 Sex Assigned At Female F [facility] History of Present illness Narrative 07-18-2024 Luz Naranjo LPN - 07/18/2024 1:30 PM GUERITA Lewis - 07/18/2024 1:30 PM EST Note Date & Type Note Facility 07-18-2024 History of Presen t illness Narrative cbc Reason for Appointment: Patient ID: Malini Yadav is a 29 y.o. female who presents for encounter for weight management Patient presents today for Medication Follow Up appointment. MEDICATIONS Current Outpatient Medications Medication Instructions buPROPion XL (WELLBUTRIN XL) 300 mg, Oral, Daily, Do not crush, chew, or split. clindamycin (Cleocin-T) 1 % lotion Topical, 2 times daily metFORMIN XR (GLUCOPHAGE-XR) 1,000 mg, Oral, Daily, Do not crush, chew, or split. spironolactone (ALDACTONE) 50 mg, Oral, Daily Tirzepatide (Mounjaro) 7.5 MG/0.5ML solution auto-injector 0.5 mL, Subcutaneous, Weekly [...] Exam Constitutional: Appearance: Normal appearance. She is normal weight. HENT: Head: Normocephalic. Cardiovascular: Rate and Rhythm: Normal rate. Pulses: Normal pulses. Pulmonary: Effort: Pulmonary effort is normal. Breath sounds: Normal breath sounds. Abdominal: Palpations: Abdomen is soft. Musculoskeletal: General: Normal range of motion. Neurological: General: No focal deficit present. Mental Status: She is alert and oriented to person, place, and time. Psychiatric: Mood and Affect: Mood normal. Behavior: Behavior normal. Thought Content: Thought content normal. Judgment: Judgment normal. Vitals and nursing note reviewed. Vitals: Estimated body mass index is 38.32 kg/m as calculated from the following: Height as of 04/06/24: 5' 6 . Weight as of this encounter: 237 lb 6.4 oz. BP: 100/74 Patient's last menstrual period was 06/26/2024. ASSESSMENT & PLAN ICD-10-CM 1. Encounter for weight management Z76.89 CBC and differential Comprehensive metabolic panel Lipase Lipase Tirzepatide (Mounjaro) 7.5 MG/0.5ML solution auto-injector 2. Major depressive disorder, remission status unspecified, unspecified whether recurrent (CMS/HCC) F32.9 buPROPion XL (Wellbutrin XL) 300 MG 24 hr tablet Patient presents for medication increase of mounjaro and wellbutrin. Patient will be given wellness labs to obtain in July to check liver and kidney functions. Pt to follow up for annual Documented by GUERITA Yuen on behalf of: GUERITA Yuen documented in this encounter [facility] History of Present illness Narrative 05-11-2024 Adriana Landeros LPN - 05/11/2024 2:30 PM EDT [...] nursing note reviewed. Exam conducted with a refractive surgeon present. Vitals: Estimated body mass index is 39.03 kg/m as calculated from the following: Height as of 9/11/24: 5' 6 . Weight as of this [...] Tiff Longo DO documented in this encounter [facility] History of Present illness Narrative 04-06-2024 Adriana Landeros LPN - 04/06/2024 11:00 AM EDT Note Date & Type Note Facility 04-06-2024 History of Presen t illness Narrative Reason for Appointment: Patient ID: Malini Yadav is a 29 y.o. female who presents for Well Women Visit Patient presents today for Annual Exam. MEDICATIONS Current Outpatient Medications Medication Instructions buPROPion XL (WELLBUTRIN XL) 150 mg, Oral, Daily, Do not crush, chew, or split. metFORMIN (OSM) (FORTAMET) 500 mg, Oral, 2 times daily with meals, Do not crush, chew, or split. Ozempic (1 MG/DOSE) 1 mg, Subcutaneous, Weekly Ozempic (2 MG/DOSE) 8 mg, Subcutaneous, Weekly spironolactone (ALDACTONE) 50 mg, Oral, Daily ALLERGIES No Known Allergies PROBLEMS Active Ambulatory Problems Diagnosis Date Noted Encounter for weight management 08/12/2023 Resolved Ambulatory Problems Diagnosis Date Noted No Resolved Ambulatory Problems Past Medical History: Diagnosis Date Acne Anxiety Chronic fatigue Dysmenorrhea Hair loss Hirsutism Menorrhagia PCOS (polycystic ovarian syndrome) Weight gain HISTORY PAST MEDICAL HISTORY SOCIAL HISTORY Past Medical History: Diagnosis Date Acne Anxiety Chronic fatigue Dysmenorrhea Hair loss Hirsutism Menorrhagia PCOS (polycystic ovarian syndrome) Weight gain [...] appearance. She is well-developed. Genitourinary: Vulva normal. Breasts: Breasts are soft. Right: Normal. Left: Normal. Cardiovascular: Rate and Rhythm: Normal rate and [...] nursing note reviewed. Exam conducted with a refractive surgeon present. Vitals: Estimated body mass index is 39.06 kg/m as calculated from the following: Height as of this encounter: 5' 6 . Weight as of this encounter: 242 lb. BP: 110/72 Patient's last menstrual period was 04/05/2024. ASSESSMENT & PLAN ICD-10-CM 1. Well woman exam with routine gynecological exam Z01.419 Pap Smear Annual Exam: Patient presents today for an annual exam. Patient states she is doing well and has complaints of breaking out on face and swollen lymph nodes. Rx for Pap was obtained without difficulty. No orders of the defined types were placed in this encounter. Follow Up: Patient is to return in one year for annual unless needed otherwise. Documented by Adriana Landeros LPN on behalf of: Tiff Longo DO documented in this encounter [facility] Evaluation note Note Date & Type Note Facility Evaluation note Diagnosis LGSIL of cervix of undetermined significance Weight gain Other symptoms concerning nutrition, metabolism, and development documented in this encounter [facility] Evaluation note Note Date & Type Note Facility Evaluation note Diagnosis Well woman exam with routine gynecological exam Routine gynecological examination Acne, unspecified acne type Weight gain Other symptoms concerning nutrition, metabolism, and development Major depressive disorder, remission status unspecified, unspecified whether recurrent (CMS/HCC) Blood pressure instability Insulin resistance Other abnormal glucose documented in this encounter [facility] Evaluation note Note Date & Type Note Facility Evaluation note Diagnosis Encounter for weight management Major depressive disorder, remission status unspecified, unspecified whether recurrent (CMS/HCC) documented in this encounter [facility] Evaluation note Note Date & Type Note Facility Evaluation note Diagnosis Onset Date Resolution Sore throat acute July 31, 2024 2:04pm [facility] Work Phone: Summary Purpose Family History No Family History Records FoundNo Family History Records FoundNo Family History Records FoundNo Family History Records FoundNo Family History Records Found Advance Directives Advance Directive Response Recorded Date/ Time Advance Directives No July 31, 2024 2:03pm Chief Complaint and Reason for Visit Chief Complaint Admit Date Unknown May 11, 2024 9 :22am sore throat July 31, 2024 2: 04pm Reason for Visit Admit Date Sore throat July 31, 2024 2: 04pm Additional Source Comments <item> Privacy Markings (unrecogniz ed section and content) Section Author: Paige Walton PROHIBITION ON REDISCLOSURE OF CONFIDENTIAL INFORMATION This notice accompanies a disclosure of information concerning a client made to you with the consent of such client. INFORMATION SOURCE (unrecogn ized section and content) DATE CREATED AUTHOR 10/25/2021 [facility] DATE CREATED AUTHOR AUTHOR'S ORGANIZ ATION 05/05/2022 [facility] DATE CREATED AUTHOR AUTHOR'S ORGANIZ ATION 10/30/2022 [facility] DATE CREATED AUTHOR AUTHOR'S ORGANIZ ATION 03/22/2024 [facility] DATE CREATED AUTHOR AUTHOR'S ORGANIZ ATION 07/20/2024 [facility] EPIC Reason for Visit (unrecogniz ed section and content) Reason Comments Colposcopy Reason Comments Well Women Visit Reason Comments encounter for weight management Care Teams (unrecognized sec tion and content) Animal Control Supervisor Relationship Specialty Start Date End Date Alen Ervin MD [address] [place] [address] PCP - General Family Medicine 12/02/22 Animal Control Supervisor Relationship Specialty Start Date End Date Alen Ervin MD [address] [place] [address] PCP - General Family Medicine 12/02/22 Animal Control Supervisor Relationship Specialty Start Date End Date Alen Ervin MD [address] [place] [address] PCP - General Family Medicine 12/02/22 Animal Control Supervisor Relationship Specialty Start Date End Date Alen Ervin MD [address] [place] [address] PCP - General Family Medicine 12/02/22 Team Status: Active Member Role Status Dates PHYSICIAN NO FAMILY Primary Care Provider Active Team Status: Inactive Member Role Status Dates Tiff Qing , DO Attending Provider Active Start : May 11, 2024 End: May 11, 2024 Team Status: Inactive Member Role Status Dates Jarrett Jackson PA-C Attending Provider Active St art: July 31, 2024 End: July 31, 2024 PHYSICIAN JORDAN FAMILY Primary Care Provider Active Start: July 31, 2024 End: July 31, 2024 Goals (unrecognized section and content) Goals may be documented in a n alternate section FOR RECORDS PERTAINING TO PATIENTS WHO ARE [...] ON THE PRIMARY CLINICAL RECORDS. [facility]. provides no warranty or guarantee of the accuracy or completeness of information in this document.
[2024-08-15 09:35] LABS: Alanine Aminotransferase 29 U/L (14-59); Albumin Globulin Ratio 1.2; Albumin Level 3.9 g/dL (3.4-5.0); Alkaline Phosphatase 58 U/L (46-116); Anion Gap 11.3; Aspartate Amino Transferase 17 U/L (15-37); BUN Creatinine Ratio 12.8; Bilirubin Total 0.6 mg/dL (0.2-1.0); Carbon Dioxide 29.9 mmol/L (21.0-32.0); Chloride 104 mmol/L (98-107); Estimated GFR (African America >60 (>=60 mL/min/1.73m^2); Estimated GFR (Non-African Ame >60 (>=60 mL/min/1.73m^2); Globulin 3.2 g/dL; Glucose 79 mg/dL (74-106); Potassium 4.2 mmol/L (3.5-5.1); Sodium 141 mmol/L (136-145); Total Protein 7.1 g/dL (6.4-8.2)
[2024-08-15 09:40] LABS: Calcium 8.7 mg/dL (8.5-10.1)
[2024-08-15 09:42] LABS: Basophils Percent Auto 0.8 % (0.2-2.0); Eosinophils Absolute Auto 0.1 10^3/uL (0.0-0.7); Eosinophils Percent Auto 1.7 % (0.9-7.0); Hematocrit 42.2 % (36.0-48.0); Hemoglobin 14.1 g/dL (12.0-16.0); Immature Granulocytes Abs Auto 0.02 10^3/uL (0.00-0.03); Immature Granulocytes Pct Auto 0.4 % (0.0-0.5); Lymphocytes Absolute Auto 1.7 10^3/uL (1.2-3.8); Mean Corpuscular HGB Conc 33.4 g/dL (29.9-35.2); Mean Corpuscular Hemoglobin 29.9 pg (26.7-34.0); Mean Corpuscular Volume 89.6 fL (81.0-99.0); Monocytes Absolute Auto 0.5 10^3/uL (0.3-0.8); Monocytes Percent Auto 9.2 % (1.7-12.0); Neutrophils Percent Auto 55.9 % (43.0-75.0); Platelet Count 229 10^3/uL (150-450); Red Blood Count 4.71 10^6/uL (4.20-5.40); Red Cell Distribution Width 12.6 % (11.0-15.0); White Blood Count 5.3 10^3/uL (4.0-11.0)
== END 2024-08-15 09:01 | disposition home or self-care (01) ==
LOC: LAB 09:01
PROVIDERS: Visit Provider Physician Assistant
DX: Z76.89 Persons encountering health services in other specified circumstances (principal)
CPT/HCPCS: 36415; 80053; 83690; 85025

== ENCOUNTER 2024-11-15 12:47 | Outpatient (REF) | payer BC, SELFPAY ==
[2024-11-17 14:12] LABS: Age Gdln ACOG Testing Note (.); IGP, rfx Aptima HPV ASCU Note (.)
== END 2024-11-15 12:48 | disposition home or self-care (01) ==
LOC: LAB 12:47
PROVIDERS: Visit Provider Obstetrics & Gynecology
DX: R87.612 Low grade squamous intraepithelial lesion on cytologic smear of cervix (LGSIL) (principal)
CPT/HCPCS: 88175

== ENCOUNTER 2025-05-22 20:06 | Outpatient (REF) | payer BC, SELFPAY ==
--- OUTSIDE RECORDS SUMMARY | 2025-05-22 09:40 | XMS_ITS | Encounter Summary ---
Author Organization [facility] Address [address] [place] [address] Care Team Providers Care Chief Embalmer Name Role Phone Alen Ervin MD Primary Care Provider Reason for Visit * ReasonCommentsWell Women Visit Encounter Details DateTypeDepartmentCare Team (Latest Contact Info)Ylfgwvkbmxa73/27/2025 9:40 AM EDTProcedure Visit [facility] [address] [place] [address] Don Longo DO [address] [place] [address] Well woman exam with routine gynecological exam Social History Tobacco UseTypesPacks/DayYears UsedDateSmoking Tobacco: NeverSmokeless Tobacco: Never Comments:None Alcohol UseStandard Drinks/WeekCommentsNever0 (1 standard drink = 0.6 oz pure alcohol)caffeine intake: yesCommentsNoSex and Gender InformationValue Date RecordedSex Assigned at BirthNot on fileLegal UuuDivtda61/15/2023 6:38 PM EDTGender IdentityNot on fileSexual OrientationNot on filedocumented as of this encounter Last Filed Vital Signs Vital SignReadingTime TakenCommentsBlood Muqcablf770/6005/22/2025 9:52 AM EDT Pulse--Temperature--Respiratory Rate--Oxygen Saturation--Inhaled Oxygen Concentration--Ivxmef41.5 kg (186 lb 4 oz)05/22/2025 9:52 AM EDTHeight--Body Mass Index30.0604/06/2024 11:04 AM EDTdocumented in this encounter Plan of Treatment NameTypePriorityAssociated DiagnosesOrder SchedulePap SmearPathology and CytologyRoutine Well woman exam with routine gynecological exam Ordered: 05/22/2025documented as of this encounter Visit Diagnoses Diagnosis Well woman exam with routine gynecological exam Routine gynecological examination documented in this encounter Care Teams Team MemberRelationshipSpecialtyStart DateEnd Date Alen Ervin MD [address] [place] [address] PCP - GeneralFamily Medicine12/02/22documented as of this encounter
--- OUTSIDE RECORDS SUMMARY | 2025-05-22 20:10 | XMS_ITS | Encounter Summary ---
Author Organization [facility] Address [address] [place] [address] Care Team Providers Care Fact Checker Name Role Phone Alen Ervin MD Primary Care Provider [phone] Encounter Details DateTypeDepartmentCare Team (Latest Contact Info)Wlxkkzngeez23/27/2025amboo flowsheet [facility] [address] [place] [address] Don Longo DO [address] [place], [place] [address] Social History Tobacco UseTypesPacks/DayYears UsedDateSmoking Tobacco: NeverSmokeless Tobacco: Never Comments:None Alcohol UseStandard Drinks/WeekCommentsNever0 (1 standard drink = 0.6 oz pure alcohol)caffeine intake: yesCommentsNoSex and Gender InformationValue Date RecordedSex Assigned at BirthNot on fileLegal IgmNjcakf51/15/2023 6:38 PM EDTGender IdentityNot on fileSexual OrientationNot on filedocumented as of this encounter Plan of Treatment Not on file documented as of this encounter Visit Diagnoses Not on filedocumented in this encounter Care Teams Team MemberRelationshipSpecialtyStart DateEnd Date Alen Ervin MD [address] [place] [address] PCP - GeneralFamily Medicine12/02/22documented as of this encounter
--- OUTSIDE RECORDS SUMMARY | 2025-05-22 20:10 | XMS_ITS | Clinical Summary ---
Author Organization [facility] Address [facility] [place] [address] Care Team Providers Care Non Destructive Testing Engineer Name Role Phone Don Longo DO Primary Care Provider Allergies No known active allergies Medications No known medications Social History Tobacco UseTypesPacks/DayYears UsedDateSmoking Tobacco: Never Assessed CommentsNoSex and Gender InformationValueDate RecordedSex Assigned at BirthNot on fileLegal PxjMrbaoi76/29/2023 9:11 PM EDTGender IdentityNot on fileSexual OrientationNot on file Last Filed Vital Signs Vital SignReadingTime TakenCommentsBlood Pressure--Pulse--Temperature-- Respiratory Rate--Oxygen Saturation--Inhaled Oxygen Concentration--Ysljkw677.8 kg (306 lb)10/22/2022 9:14 PM NZDJlyvdo158.6 cm (5' 6 )10/22/2022 9:14 PM EDT Body Mass Index49.39010/22/2022 9:14 PM EDT Plan of Treatment Health MaintenanceDue DateLast DoneCommentsTetanus: Every 10yrs (RETIRED) 1996Wellness Visit02/26/1999Depression Screening/Follow-Up (PHQ-2/9) 2008HIV Ubpxegezs95/03/2011Hepatitis C Ckfjfymow39/03/2014Pap Smear 02/26/2017COVID-19 Vaccine ( season)/, 04/25/2022 Influenza Vaccine (#1)2025Pneumococcal VaccineAged OutNo longer eligible based on patient's age to complete this topic Insurance * Guarantor: Malini YadavAccount TypeRelation to PatientDate of BirthPhone Billing AddressPersonal/PnyxoxHaeq1995 [id number] (Home) [address] [place], [place] [id number] Care Teams Team MemberRelationshipSpecialtyStart DateEnd Date Don Longo DO [address] [place] [address] PCP - GeneralObstetrics/Gynecology10/22/22
--- OUTSIDE RECORDS SUMMARY | 2025-05-22 20:10 | XMS_ITS | Clinical Summary ---
Author Organization [facility] Address [address] [place] [address] Phone Care Team Providers Care Biofuels Operations Manager Name Role Phone Unavailable Primary Care Provider Unavailabl e Social History Tobacco UseTypesPacks/DayYears UsedDateSmoking Tobacco: Never Assessed CommentsUnknownSex and Gender InformationValueDate RecordedSex Assigned at Not on fileLegal IrxVivdpb79/26/2022 2:21 AM ESTGender IdentityNot on fileSexual OrientationNot on file Last Filed Vital Signs Vital SignReadingTime TakenCommentsBlood Zcxibcce127/7103 3:50 PM EDT Kjdtk8384 3:50 PM ITWLdilsviazgv40.6 ??C (96.1 ??F)10/23/2021 3:50 PM EDTRespiratory Bonz479310/23/2021 3:50 PM EDTOxygen Bwgsktynmi32%10/23/2021 3:50 PM EDTInhaled Oxygen Concentration--Weight--Jnbeek615.6 cm (5' 5.98 )10/23/2021 3:50 PM EDTBody Mass Index-- Plan of Treatment Not on file
--- OUTSIDE RECORDS SUMMARY | 2025-05-22 20:10 | XMS_ITS | Clinical Summary ---
Author Organization [facility] Address [id number] [address] [place] [address] Care Team Providers Care Professor Of Musicology Name Role Phone Unavailable Primary Care Provider Unavailabl e Social History Tobacco UseTypesPacks/DayYears UsedDateSmoking Tobacco: Never Assessed CommentsUnknownSex and Gender InformationValueDate RecordedSex Assigned at Not on fileLegal DfnIiwkla06/20/2025 6:25 PM ESTGender IdentityNot on fileSexual OrientationNot on file Plan of Treatment Not on file Medical Devices Not on file
--- OUTSIDE RECORDS SUMMARY | 2025-05-22 20:10 | XMS_ITS | Clinical Summary ---
Author Organization [facility] Address [address] [place] [address] Care Team Providers Care Program Services Planner Name Role Phone Alen Ervin MD Primary Care Provider [phone] Allergies No known active allergies Medications MedicationSigDispense QuantityRefillsLast FilledStart DateEnd DateStatus metFORMIN XR (Glucophage-XR) 500 MG 24 hr tablet Indications:Insulin resistanceTake 2 tablets (1,000 mg) by mouth Daily Do not crush, chew, or split. 60 tablet 1104Active clindamycin (Cleocin T) 1 % lotion Indications:Acne, unspecified acne typeAPPLY TO AFFECTED AREA TWICE A DAY 60 mL 5Active buPROPion XL (Wellbutrin XL) 300 MG 24 hr tablet Indications:Major depressive disorder, remission status unspecified, unspecified whether recurrentTake 1 tablet (300 mg) by mouth Daily Do not crush, chew, or split. 90 tablet 304506Active ondansetron ODT (Zofran-ODT) 4 MG disintegrating tablet Indications:NauseaTake 1 tablet (4 mg) by mouth every 6 (six) hours if needed for nausea or vomiting 20 tablet 5Active spironolactone (Aldactone) 50 MG tablet Indications:Blood pressure instabilityTake 1 tablet (50 mg) by mouth Daily 90 tablet 309515Active Active Problems ProblemNoted DateDiagnosed DateEncounter for weight /17/2024 Encounters DateTypeDepartmentCare EcpzXfjthgvrxho23/27/2025 9:40 AM EDTProcedure Visit [facility] [address] [place] [address] [address] [place] [address] Don Longo, DO Well woman exam with routine gynecological exam05/22/2025amboo flowsheet [facility] [address] [facility] [place] [place] [address] Don Longo, 04/17/2025Refill [facility] [address] [facility] [address] [address] [place] [place] [address] Luz Naranjo LPN Blood pressure hrysskhnztw37/27/2025Refill [facility] [address] [facility] [address] [place] [place] [address] Luz Naranjo LPN Xoqlvr7802/22/2025Refill [facility] [address] [facility] [address] [place] [place] [address] Luz Naranjo LPN Encounter for weight managementfrom Last 3 Months Family History Medical HistoryRelationNameCommentsHypertensionBrother 1No Known Problems DaughterColetteMigrainesMotherLoriNo Known ProblemsSonConnerRelationNameStatus CommentsBrother 1AliveBrother 2AliveBrother 3AliveDaughterColetteAliveFather AliveMotherLoriAliveSonConnerAlive Social History Tobacco UseTypesPacks/DayYears UsedDateSmoking Tobacco: NeverSmokeless Tobacco: Never Tobacco Cessation:Counseling Given: Not Answered Comments:None Alcohol UseStandard Drinks/WeekCommentsNever0 (1 standard drink = 0.6 oz pure alcohol)caffeine intake: yesCommentsNoSex and Gender InformationValue Date RecordedSex Assigned at BirthNot on fileLegal SpwAnekbm71/15/2023 6:38 PM EDTGender IdentityNot on fileSexual OrientationNot on file Last Filed Vital Signs Vital SignReadingTime TakenCommentsBlood Seichzgy117/6005/22/2025 9:52 AM EDT Pulse--Temperature--Respiratory Rate--Oxygen Saturation--Inhaled Oxygen Concentration--Oprayu26.5 kg (186 lb 4 oz)05/22/2025 9:52 AM EEZKzsrbc017.6 cm (5' 6 )04/06/2024 11:04 AM EDTBody Mass Index30.0604/06/2024 11:04 AM EDT Plan of Treatment Health MaintenanceDue DateLast DoneCommentsMMR Vaccines (1 of 1 - Standard series)02/26/1997DTaP/Tdap/Td Vaccines (1 - Tdap)02/26/2003Varicella Vaccines (1 of 2 - 13+ 2-dose series)02/26/2009Hepatitis A Vaccines (1 of 2 - Risk 2-dose series)02/26/2015Hepatitis B Vaccines (1 of 3 - 19+ 3-dose series)02/26/2015HPV Vaccines (1 - 3-dose SCDM series)02/26/2023OVID-19 Vaccine ( - season) , 04/25/2022Influenza Vaccine (#1)2025HIB VaccinesAged OutNo longer eligible based on patient's age to complete this topicIPV Vaccines Aged OutNo longer eligible based on patient's age to complete this topic Meningococcal B VaccineAged OutNo longer eligible based on patient's age to complete this topicMeningococcal VaccineAged OutNo longer eligible based on patient's age to complete this topicPneumococcal Vaccine: Pediatrics (0 to 5 Years) and At-Risk Patients (6 to 64 Years)Aged OutNo longer eligible based on patient's age to complete this topicRotavirus VaccinesAged OutNo longer eligible based on patient's age to complete this topic Insurance Care Teams Team MemberRelationshipSpecialtyStart DateEnd Date Alen Ervin MD [address] [place] [address] PCP - GeneralFamily Medicine12/02/22
[2025-05-26 00:09] LABS: Age Gdln ACOG Testing Note (.); IGP, rfx Aptima HPV ASCU Note (.)
== END 2025-05-22 20:07 | disposition home or self-care (01) ==
LOC: LAB 20:06
PROVIDERS: Visit Provider Obstetrics & Gynecology
DX: Z01.419 Encounter for gynecological examination (general) (routine) without abnormal findings (principal)
CPT/HCPCS: 88175